=== PATIENT | male | born 1945 | race Caucasian/White ===

== ENCOUNTER 2016-11-27 04:17 | Inpatient (IN) | payer MEDICAID, MEDICARE ==
[~2016-11-27] VITALS: Ht 182.9 cm; Wt 65.6 kg
[2016-11-27] MEDS ORDERED: SODIUM CHLORIDE 0.9% 1,000 ML IV ONE (04:47)
[2016-11-27] MEDS ORDERED: SODIUM CHLORIDE 0.9% 1,000ML IVBOLUS ONE (05:00)
[2016-11-27] MEDS ORDERED: ONDANSETRON 2MG/ML, 2ML IVPush ONE (05:00)
[2016-11-27] MEDS ORDERED: MORPHINE SULFATE 4 MG/ML, 1ML ONE ×3 (05:04→11:47)
[2016-11-27] MEDS ORDERED: ONDANSETRON 2MG/ML, 2ML ONE (05:04)
[2016-11-27] MEDS: MORPHINE SULFATE 4 MG/ML, 1ML IVPush PRN ×2 (05:09→06:35)
[2016-11-27 05:31] LABS: HEMATOCRIT 40.2 % (39.2-51.8); HEMOGLOBIN 13.6 g/dL (13.7-18.0); WHITE BLOOD COUNT 9.1 x10^3/uL (3.4-10)
[2016-11-27 05:50] LABS: ASPARTATE AMINO TRANSFERASE 13 U/L (15-37); BLOOD UREA NITROGEN 31 mg/dL (7-18)
[2016-11-27] MEDS ORDERED: CEFTRIAXONE PMX 1GM/50ML 50 ML IV ONE (07:00)
[2016-11-27] MEDS ORDERED: CEFTRIAXONE PMX 1GM/50ML 50 ML ONE (09:15)
[2016-11-27] MEDS ORDERED: SENN1TAB9 PO (10:34)
[2016-11-27] MEDS: SODIUM CHLORIDE 0.9% 1,000 ML IV SCH ×2 (10:35→20:00)
[2016-11-27] MEDS ORDERED: OXYC5CAP2 PO (10:35)
[2016-11-27] MEDS ORDERED: CIPR250T2 PO (10:36)
[2016-11-27] MEDS ORDERED: TAMS-11 PO (10:36)
[2016-11-27] MEDS ORDERED: BISACODYL 10 MG SUPP PR PRN (11:00)
[2016-11-27] MEDS ORDERED: LABETALOL 5MG/ML, 20ML IVPush PRN (11:00)
[2016-11-27] MEDS ORDERED: DOCUSATE 100 MG CAPSULE PO PRN (11:00)
[2016-11-27] MEDS ORDERED: morphine SULFATE 10 MG/ML, 1ML IVPush PRN (11:00)
[2016-11-27] MEDS ORDERED: PROMETHAZINE 25 MG/ML, 1ML IM PRN (11:00)
[2016-11-27] MEDS ORDERED: POLYETHYLENE GLYCOL 17 GM PACKET PO PRN (11:00)
[2016-11-27] MEDS ORDERED: ENALAPRILAT 1.25 MG/ML, 2ML IVPush PRN (11:00)
[2016-11-27] MEDS ORDERED: ACETAMINOPHEN 325 MG TABLET PO PRN (11:00)
[2016-11-27] MEDS ORDERED: ONDANSETRON 2MG/ML, 2ML IVPush PRN (11:00)
[2016-11-27 11:42] VITALS: BP 164/89
[2016-11-27] MEDS: MEROPENEM 1 GM in SODIUM CHLORIDE 0.9% 100 ML IV SCH (16:34)
[2016-11-27] MEDS: ENOXAPARIN 40 MG/0.4 ML SQ SCH (18:13)
[2016-11-27 18:37] VITALS: BP 115/69
[2016-11-27] MEDS: OXYcodone IR 5MG TABLET PO PRN (22:01)
[2016-11-28] MEDS: MEROPENEM 1 GM in SODIUM CHLORIDE 0.9% 100 ML IV SCH ×3 (00:56→16:47)
[2016-11-28 04:30] VITALS: BP 124/73
[2016-11-28] MEDS ORDERED: VANCOMYCIN PER PHARMACY MC PRN (04:30)
[2016-11-28] MEDS ORDERED: PHARMACOKINETIC CONSULTATION MC ONE (04:30)
[2016-11-28] MEDS ORDERED: PHARMACOKINETIC MONITORING MC PRN (04:30)
[2016-11-28] MEDS: SODIUM CHLORIDE 0.9% 1,000 ML IV SCH ×3 (04:40→14:56)
[2016-11-28] MEDS: VANCOMYCIN 1,300 MG in SODIUM CHLORIDE 0.9% 250 ML IV SCH (04:45)
[2016-11-28] MEDS: OXYcodone IR 5MG TABLET PO PRN ×2 (05:41→11:23)
[2016-11-28 06:01] LABS: HEMATOCRIT 35.2 % (39.2-51.8); HEMOGLOBIN 11.8 g/dL (13.7-18.0); WHITE BLOOD COUNT 6.3 x10^3/uL (3.4-10)
[2016-11-28 06:29] LABS: ASPARTATE AMINO TRANSFERASE 10 U/L (15-37); BLOOD UREA NITROGEN 18 mg/dL (7-18)
[2016-11-28 06:45] VITALS: BP 113/72
[2016-11-28] MEDS: FINASTERIDE 5 MG TABLET PO SCH (08:55)
[2016-11-28] MEDS: SENNA/DOCUSATE TABLET PO SCH (08:55)
[2016-11-28 15:05] VITALS: BP 106/62
[2016-11-28] MEDS ORDERED: NS + 20MEQ KCL 1,000 ML IV SCH (18:00)
[2016-11-28 19:58] VITALS: BP 109/54
[2016-11-29] MEDS: OXYcodone IR 5MG TABLET PO PRN ×3 (00:19→21:23)
[2016-11-29] MEDS: MEROPENEM 1 GM in SODIUM CHLORIDE 0.9% 100 ML IV SCH ×3 (00:21→16:30)
[2016-11-29] MEDS: VANCOMYCIN 1,300 MG in SODIUM CHLORIDE 0.9% 250 ML IV SCH (04:39)
[2016-11-29 04:46] VITALS: BP 135/75
[2016-11-29 05:25] LABS: HEMATOCRIT 35.6 % (39.2-51.8); HEMOGLOBIN 11.9 g/dL (13.7-18.0); WHITE BLOOD COUNT 5.6 x10^3/uL (3.4-10)
[2016-11-29 05:36] LABS: BLOOD UREA NITROGEN 15 mg/dL (7-18)
[2016-11-29 08:50] VITALS: BP 137/83
[2016-11-29] MEDS: FINASTERIDE 5 MG TABLET PO SCH (09:00)
[2016-11-29] MEDS: SENNA/DOCUSATE TABLET PO SCH (09:00)
[2016-11-29 14:58] VITALS: BP 138/81
[2016-11-29] MEDS: ENOXAPARIN 40 MG/0.4 ML SQ SCH (18:00)
[2016-11-29 20:39] VITALS: BP 138/71
[2016-11-30] MEDS: MEROPENEM 1 GM in SODIUM CHLORIDE 0.9% 100 ML IV SCH ×2 (00:54→08:07)
[2016-11-30 03:30] VITALS: BP 129/75
[2016-11-30] MEDS: VANCOMYCIN 1,300 MG in SODIUM CHLORIDE 0.9% 250 ML IV SCH (05:22)
[2016-11-30 06:59] VITALS: BP 137/78
[2016-11-30] MEDS: OXYcodone IR 5MG TABLET PO PRN ×3 (08:27→22:14)
[2016-11-30] MEDS: SENNA/DOCUSATE TABLET PO SCH (09:24)
[2016-11-30] MEDS: FINASTERIDE 5 MG TABLET PO SCH (09:24)
[2016-11-30 13:44] VITALS: BP 130/68
[2016-11-30] MEDS: ENOXAPARIN 40 MG/0.4 ML SQ SCH (18:11)
[2016-11-30 19:09] VITALS: BP 120/74
[2016-11-30] MEDS: SULFAMETH./TRIMETHOPRIM DS 800MG/160MG TABLET PO SCH (20:15)
[2016-12-01 00:39] VITALS: BP 154/89
[2016-12-01 08:02] VITALS: BP 144/80
[2016-12-01] MEDS: FINASTERIDE 5 MG TABLET PO SCH (08:40)
[2016-12-01] MEDS: SULFAMETH./TRIMETHOPRIM DS 800MG/160MG TABLET PO SCH (08:40)
[2016-12-01] MEDS: SENNA/DOCUSATE TABLET PO SCH ×2 (08:40→08:45)
[2016-12-01] MEDS: OXYcodone IR 5MG TABLET PO PRN (08:58)
[2016-12-01 13:46] VITALS: BP 150/81
[2016-12-01] MEDS ORDERED: SULF-169 PO (14:45)
[2016-12-01] MEDS ORDERED: FINA5TAB4 PO (14:45)
== END 2016-12-01 16:54 | disposition home or self-care (01) | DRG 70 ==
LOC: ED 05:20 → EDIP 09:29 → 4NOR 11:18
PROVIDERS: ADMIT Internal Medicine; ATTEND Family Medicine
DX: G93.41 Metabolic encephalopathy (principal); E43 Unspecified severe protein-calorie malnutrition; N39.0 Urinary tract infection, site not specified; D53.9 Nutritional anemia, unspecified; B95.62 Methicillin resistant Staphylococcus aureus infection as the cause of diseases classified elsewhere; R78.81 Bacteremia; E86.0 Dehydration; R64 Cachexia; Z68.1 Body mass index [BMI] 19.9 or less, adult; B96.4 Proteus (mirabilis) (morganii) as the cause of diseases classified elsewhere; I10 Essential (primary) hypertension; R62.7 Adult failure to thrive; N40.0 Benign prostatic hyperplasia without lower urinary tract symptoms; Z51.5 Encounter for palliative care; Z66 Do not resuscitate; Z75.1 Person awaiting admission to adequate facility elsewhere
CPT/HCPCS: 36415; 70450; 71010; 74176; 80048; 80053; 81001; 82607; 82746; 83605; 83735; 84100; 84145; 84443; 85025; 87040; 87077; 87086; 87150; 87186; 87324; 93005; 96361; 96365; 96366; 96375; 96376; J0696; J1650; J2185; J2405; J3370; J3480; J2270; J7030; J7050; Q0177

== ENCOUNTER 2016-12-20 14:52 | Inpatient (IN) | payer MEDICARE, OTHER ==
[~2016-12-20] VITALS: Ht 188 cm; Wt 73.1 kg
[~2016-12-20 14:52] MED LIST: CIPR250T2 PO; FINA5TAB4 PO; OXYC5CAP2 PO; SENN1TAB9 PO; SULF-169 PO; TAMS-11 PO
[2016-12-20] MEDS ORDERED: SODIUM CHLORIDE FLUSH 10ML SYR IVF ONE (15:30)
[2016-12-20] MEDS ORDERED: SODIUM CHLORIDE 0.9% 1,000ML IVBOLUS ONE (15:30)
[2016-12-20 16:05] LABS: HEMATOCRIT 40.2 % (39.2-51.8); HEMOGLOBIN 13.5 g/dL (13.7-18.0); WHITE BLOOD COUNT 5.2 x10^3/uL (3.4-10)
[2016-12-20 16:13] LABS: BLOOD UREA NITROGEN 15 mg/dL (7-18)
[2016-12-20 16:17] LABS: ASPARTATE AMINO TRANSFERASE 13 U/L (15-37)
[2016-12-20] MEDS ORDERED: SULFAMETH./TRIMETHOPRIM DS 800MG/160MG TABLET PO ONE (19:00)
[2016-12-20] MEDS ORDERED: ONDANSETRON ODT 4 MG PO PRN (19:30)
[2016-12-20] MEDS ORDERED: ENALAPRILAT 1.25 MG/ML, 2ML IVPush PRN (19:30)
[2016-12-20] MEDS ORDERED: ACETAMINOPHEN 325 MG TABLET PO PRN (19:30)
[2016-12-20] MEDS ORDERED: POLYETHYLENE GLYCOL 17 GM PACKET PO PRN (19:30)
[2016-12-20 19:44] VITALS: BP 129/78
[2016-12-20] MEDS: TEMAZEPAM 15 MG CAPSULE PO PRN (23:40)
[2016-12-20] MEDS: ENOXAPARIN 40 MG/0.4 ML SQ SCH (23:40)
[2016-12-21] MEDS: SULFAMETH./TRIMETHOPRIM DS 800MG/160MG TABLET PO SCH ×3 (00:41→19:39)
[2016-12-21 01:20] VITALS: BP 122/78
[2016-12-21 03:59] VITALS: BP 122/78
[2016-12-21 07:07] VITALS: BP 134/85
[2016-12-21] MEDS: OXYcodone IR 5MG TABLET PO SCH (08:37)
[2016-12-21] MEDS: FINASTERIDE 5 MG TABLET PO SCH (08:37)
[2016-12-21] MEDS: TAMSULOSIN 0.4 MG CAP.ER.24H PO SCH (08:37)
[2016-12-21 13:30] VITALS: BP 119/74
[2016-12-21 19:24] VITALS: BP 126/76
[2016-12-21] MEDS: ENOXAPARIN 40 MG/0.4 ML SQ SCH (19:39)
[2016-12-21] MEDS: TEMAZEPAM 15 MG CAPSULE PO PRN (20:19)
[2016-12-22 02:04] VITALS: BP 135/83
[2016-12-22 05:45] LABS: HEMATOCRIT 38.2 % (39.2-51.8); HEMOGLOBIN 12.9 g/dL (13.7-18.0); WHITE BLOOD COUNT 4.9 x10^3/uL (3.4-10)
[2016-12-22 05:49] LABS: BLOOD UREA NITROGEN 15 mg/dL (7-18)
[2016-12-22 07:48] VITALS: BP 131/81
[2016-12-22] MEDS: FINASTERIDE 5 MG TABLET PO SCH (09:27)
[2016-12-22] MEDS: TAMSULOSIN 0.4 MG CAP.ER.24H PO SCH (09:27)
[2016-12-22] MEDS: OXYcodone IR 5MG TABLET PO SCH (09:27)
[2016-12-22] MEDS: SULFAMETH./TRIMETHOPRIM DS 800MG/160MG TABLET PO SCH ×2 (09:27→21:00)
[2016-12-22 13:03] VITALS: BP 117/73
[2016-12-22] MEDS: CYANOCOBALAMIN 1,000 MCG/ML, 1ML IM SCH (13:48)
[2016-12-22] MEDS: OXYcodone IR 5MG TABLET PO PRN ×2 (14:16→21:21)
[2016-12-22 19:34] VITALS: BP 147/82
[2016-12-22] MEDS: ENOXAPARIN 40 MG/0.4 ML SQ SCH (21:00)
[2016-12-22] MEDS: TEMAZEPAM 15 MG CAPSULE PO PRN (22:00)
[2016-12-23] MEDS: OXYcodone IR 5MG TABLET PO PRN ×5 (01:30→22:18)
[2016-12-23 02:30] VITALS: BP 133/77
[2016-12-23 06:53] VITALS: BP 119/72
[2016-12-23] MEDS: FINASTERIDE 5 MG TABLET PO SCH (09:10)
[2016-12-23] MEDS: TAMSULOSIN 0.4 MG CAP.ER.24H PO SCH (09:10)
[2016-12-23] MEDS: SULFAMETH./TRIMETHOPRIM DS 800MG/160MG TABLET PO SCH (09:10)
[2016-12-23] MEDS: CYANOCOBALAMIN 1,000 MCG/ML, 1ML IM SCH (09:10)
[2016-12-23 12:53] VITALS: BP 127/74
[2016-12-23] MEDS: AMPICILLIN 1 GM in SODIUM CHLORIDE 0.9% 50 ML IV SCH ×2 (16:23→22:04)
[2016-12-23 18:42] VITALS: BP 126/78
[2016-12-23] MEDS: ENOXAPARIN 40 MG/0.4 ML SQ SCH (21:36)
[2016-12-24 01:22] VITALS: BP 163/81
[2016-12-24] MEDS: AMPICILLIN 1 GM in SODIUM CHLORIDE 0.9% 50 ML IV SCH ×4 (04:27→22:41)
[2016-12-24 05:12] LABS: HEMATOCRIT 38.7 % (39.2-51.8); HEMOGLOBIN 13.2 g/dL (13.7-18.0); WHITE BLOOD COUNT 5.4 x10^3/uL (3.4-10)
[2016-12-24 05:28] LABS: BLOOD UREA NITROGEN 20 mg/dL (7-18)
[2016-12-24 08:13] VITALS: BP 123/80
[2016-12-24] MEDS: TAMSULOSIN 0.4 MG CAP.ER.24H PO SCH (09:23)
[2016-12-24] MEDS: FINASTERIDE 5 MG TABLET PO SCH (09:23)
[2016-12-24] MEDS: CYANOCOBALAMIN 1,000 MCG/ML, 1ML IM SCH (09:23)
[2016-12-24] MEDS: OXYcodone IR 5MG TABLET PO PRN ×2 (09:28→20:10)
[2016-12-24 12:55] VITALS: BP 125/72
[2016-12-24 19:02] VITALS: BP 118/71
[2016-12-24 19:09] VITALS: BP 173/89
[2016-12-24] MEDS: ENOXAPARIN 40 MG/0.4 ML SQ SCH (20:10)
[2016-12-24] MEDS: TEMAZEPAM 15 MG CAPSULE PO PRN (20:10)
[2016-12-25] MEDS ORDERED: ACETAMINOPHEN 325 MG TABLET PO PRN (00:30)
[2016-12-25] MEDS ORDERED: POLYETHYLENE GLYCOL 17 GM PACKET PO PRN (00:30)
[2016-12-25] MEDS ORDERED: ONDANSETRON ODT 4 MG PO PRN (00:30)
[2016-12-25] MEDS ORDERED: ENALAPRILAT 1.25 MG/ML, 2ML IVPush PRN (00:30)
[2016-12-25 01:32] VITALS: BP 128/77
[2016-12-25] MEDS: AMPICILLIN 1 GM in SODIUM CHLORIDE 0.9% 50 ML IV SCH ×4 (03:50→23:10)
[2016-12-25 07:40] VITALS: BP 120/73
[2016-12-25] MEDS: FINASTERIDE 5 MG TABLET PO SCH (08:39)
[2016-12-25] MEDS: CYANOCOBALAMIN 1,000 MCG/ML, 1ML IM SCH (08:39)
[2016-12-25] MEDS: TAMSULOSIN 0.4 MG CAP.ER.24H PO SCH (08:39)
[2016-12-25] MEDS: OXYcodone IR 5MG TABLET PO PRN ×2 (08:47→21:09)
[2016-12-25 14:53] VITALS: BP 148/72
[2016-12-25 19:11] VITALS: BP 128/76
[2016-12-25] MEDS: TEMAZEPAM 15 MG CAPSULE PO PRN (21:09)
[2016-12-25] MEDS: ENOXAPARIN 40 MG/0.4 ML SQ SCH (21:10)
[2016-12-26 02:47] VITALS: BP 126/68
[2016-12-26] MEDS: AMPICILLIN 1 GM in SODIUM CHLORIDE 0.9% 50 ML IV SCH ×4 (05:09→23:24)
[2016-12-26 06:50] VITALS: BP 124/77
[2016-12-26] MEDS: OXYcodone IR 5MG TABLET PO PRN ×2 (10:07→20:21)
[2016-12-26] MEDS: TAMSULOSIN 0.4 MG CAP.ER.24H PO SCH (10:07)
[2016-12-26] MEDS: CYANOCOBALAMIN 1,000 MCG/ML, 1ML IM SCH (10:07)
[2016-12-26] MEDS: FINASTERIDE 5 MG TABLET PO SCH (10:07)
[2016-12-26 14:16] VITALS: BP 119/75
[2016-12-26] MEDS: ENOXAPARIN 40 MG/0.4 ML SQ SCH (19:59)
[2016-12-26 20:23] VITALS: BP 163/83
[2016-12-27 02:00] VITALS: BP 158/87
[2016-12-27] MEDS: AMPICILLIN 1 GM in SODIUM CHLORIDE 0.9% 50 ML IV SCH ×4 (05:09→22:34)
[2016-12-27 07:04] VITALS: BP 148/85
[2016-12-27] MEDS: FINASTERIDE 5 MG TABLET PO SCH (08:55)
[2016-12-27] MEDS: CYANOCOBALAMIN 1,000 MCG/ML, 1ML IM SCH (08:55)
[2016-12-27] MEDS: TAMSULOSIN 0.4 MG CAP.ER.24H PO SCH (08:55)
[2016-12-27] MEDS: OXYcodone IR 5MG TABLET PO PRN ×2 (11:18→22:33)
[2016-12-27 16:21] VITALS: BP 134/78
[2016-12-27 20:58] VITALS: BP 135/76
[2016-12-27] MEDS: ENOXAPARIN 40 MG/0.4 ML SQ SCH (22:34)
[2016-12-28 00:42] VITALS: BP 155/81
[2016-12-28] MEDS: AMPICILLIN 1 GM in SODIUM CHLORIDE 0.9% 50 ML IV SCH ×2 (05:23→11:00)
[2016-12-28] MEDS: TAMSULOSIN 0.4 MG CAP.ER.24H PO SCH (08:48)
[2016-12-28] MEDS: FINASTERIDE 5 MG TABLET PO SCH (08:48)
[2016-12-28] MEDS: CYANOCOBALAMIN 1,000 MCG/ML, 1ML IM SCH (08:49)
[2016-12-28 08:55] VITALS: BP 129/74
[2016-12-28] MEDS: OXYcodone IR 5MG TABLET PO PRN ×3 (09:01→23:14)
[2016-12-28] MEDS: AMPICILLIN/SULBACTAM 3 GM in SODIUM CHLORIDE 0.9% 100 ML IV SCH ×2 (12:36→19:17)
[2016-12-28 12:47] VITALS: BP 115/70
[2016-12-28 19:28] VITALS: BP 131/74
[2016-12-28] MEDS: TEMAZEPAM 15 MG CAPSULE PO PRN (20:21)
[2016-12-28] MEDS: ENOXAPARIN 40 MG/0.4 ML SQ SCH (20:21)
[2016-12-29 03:35] VITALS: BP 125/74
[2016-12-29] MEDS: AMPICILLIN/SULBACTAM 3 GM in SODIUM CHLORIDE 0.9% 100 ML IV SCH ×4 (03:36→23:15)
[2016-12-29 06:45] VITALS: BP 143/78
[2016-12-29] MEDS: OXYcodone IR 5MG TABLET PO PRN ×2 (09:23→23:16)
[2016-12-29] MEDS: TAMSULOSIN 0.4 MG CAP.ER.24H PO SCH (09:24)
[2016-12-29] MEDS: FINASTERIDE 5 MG TABLET PO SCH (09:24)
[2016-12-29 13:20] VITALS: BP 125/71
[2016-12-29 20:00] VITALS: BP 120/74
[2016-12-29] MEDS: ENOXAPARIN 40 MG/0.4 ML SQ SCH (23:15)
[2016-12-30 01:50] VITALS: BP 112/66
[2016-12-30] MEDS: AMPICILLIN/SULBACTAM 3 GM in SODIUM CHLORIDE 0.9% 100 ML IV SCH ×3 (04:44→20:40)
[2016-12-30 06:43] VITALS: BP 123/82
[2016-12-30] MEDS: FINASTERIDE 5 MG TABLET PO SCH (09:42)
[2016-12-30] MEDS: TAMSULOSIN 0.4 MG CAP.ER.24H PO SCH (09:42)
[2016-12-30 14:40] VITALS: BP 123/75
[2016-12-30 19:14] VITALS: BP 127/69
[2016-12-30] MEDS: OXYcodone IR 5MG TABLET PO PRN (20:28)
[2016-12-30] MEDS: ENOXAPARIN 40 MG/0.4 ML SQ SCH (20:28)
[2016-12-30] MEDS: TEMAZEPAM 15 MG CAPSULE PO PRN (20:28)
[2016-12-31] MEDS: TEMAZEPAM 15 MG CAPSULE PO PRN (01:22)
[2016-12-31 03:39] VITALS: BP 168/93
[2016-12-31] MEDS: AMPICILLIN/SULBACTAM 3 GM in SODIUM CHLORIDE 0.9% 100 ML IV SCH ×3 (05:37→21:36)
[2016-12-31 06:39] VITALS: BP 156/89
[2016-12-31] MEDS: OXYcodone IR 5MG TABLET PO PRN ×2 (09:40→17:44)
[2016-12-31] MEDS: FINASTERIDE 5 MG TABLET PO SCH (09:40)
[2016-12-31] MEDS: TAMSULOSIN 0.4 MG CAP.ER.24H PO SCH (09:40)
[2016-12-31 12:42] VITALS: BP 124/74
[2016-12-31 13:01] VITALS: BP 124/74
[2016-12-31] MEDS ORDERED: POLYETHYLENE GLYCOL 17 GM PACKET PO PRN (19:30)
[2016-12-31] MEDS ORDERED: ONDANSETRON ODT 4 MG PO PRN (19:30)
[2016-12-31] MEDS ORDERED: ENALAPRILAT 1.25 MG/ML, 2ML IVPush PRN (19:30)
[2016-12-31 20:00] VITALS: BP 152/85
[2016-12-31] MEDS: ENOXAPARIN 40 MG/0.4 ML SQ SCH (21:36)
[2016-12-31] MEDS ORDERED: AMPICILLIN/SULBACTAM 3 GM IM SCH (22:30)
[2017-01-01] MEDS: OXYcodone IR 5MG TABLET PO PRN ×3 (01:01→18:20)
[2017-01-01 02:00] VITALS: BP 123/65
[2017-01-01] MEDS ORDERED: AMPICILLIN/SULBACTAM 3 GM IM SCH (05:30)
[2017-01-01 06:43] VITALS: BP 142/81
[2017-01-01] MEDS: AMPICILLIN/SULBACTAM 3 GM in SODIUM CHLORIDE 0.9% 100 ML IV SCH ×2 (09:00→17:26)
[2017-01-01] MEDS: FINASTERIDE 5 MG TABLET PO SCH (09:19)
[2017-01-01] MEDS: TAMSULOSIN 0.4 MG CAP.ER.24H PO SCH (09:19)
[2017-01-01 12:16] VITALS: BP 125/74
[2017-01-01 19:31] VITALS: BP 124/69
[2017-01-01] MEDS: ENOXAPARIN 40 MG/0.4 ML SQ SCH (21:02)
[2017-01-01] MEDS: TEMAZEPAM 15 MG CAPSULE PO PRN (21:06)
[2017-01-02] MEDS: AMPICILLIN/SULBACTAM 3 GM in SODIUM CHLORIDE 0.9% 100 ML IV SCH ×3 (01:09→17:31)
[2017-01-02 02:46] VITALS: BP 136/76
[2017-01-02] MEDS: OXYcodone IR 5MG TABLET PO PRN ×4 (04:20→21:55)
[2017-01-02 08:19] VITALS: BP 129/77
[2017-01-02] MEDS: FINASTERIDE 5 MG TABLET PO SCH (08:26)
[2017-01-02] MEDS: TAMSULOSIN 0.4 MG CAP.ER.24H PO SCH (08:26)
[2017-01-02 13:37] VITALS: BP 126/74
[2017-01-02 20:00] VITALS: BP 121/69
[2017-01-02] MEDS: ENOXAPARIN 40 MG/0.4 ML SQ SCH (21:41)
[2017-01-03] MEDS: TEMAZEPAM 15 MG CAPSULE PO PRN ×2 (01:07→20:59)
[2017-01-03] MEDS: AMPICILLIN/SULBACTAM 3 GM in SODIUM CHLORIDE 0.9% 100 ML IV SCH ×3 (01:07→17:43)
[2017-01-03 02:00] VITALS: BP 144/79
[2017-01-03 06:07] LABS: HEMATOCRIT 35.2 % (39.2-51.8); HEMOGLOBIN 11.9 g/dL (13.7-18.0); WHITE BLOOD COUNT 4.5 x10^3/uL (3.4-10)
[2017-01-03 06:26] LABS: ASPARTATE AMINO TRANSFERASE 9 U/L (15-37); BLOOD UREA NITROGEN 19 mg/dL (7-18)
[2017-01-03 08:41] VITALS: BP 156/83
[2017-01-03] MEDS: TAMSULOSIN 0.4 MG CAP.ER.24H PO SCH (08:58)
[2017-01-03] MEDS: FINASTERIDE 5 MG TABLET PO SCH (08:59)
[2017-01-03] MEDS: OXYcodone IR 5MG TABLET PO PRN ×3 (09:37→20:59)
[2017-01-03 14:54] VITALS: BP 123/76
[2017-01-03 20:00] VITALS: BP 144/82
[2017-01-03] MEDS: ENOXAPARIN 40 MG/0.4 ML SQ SCH (20:58)
[2017-01-04 02:00] VITALS: BP 136/78
[2017-01-04] MEDS: AMPICILLIN/SULBACTAM 3 GM in SODIUM CHLORIDE 0.9% 100 ML IV SCH ×2 (02:35→09:40)
[2017-01-04 09:00] VITALS: BP 130/78
[2017-01-04] MEDS: TAMSULOSIN 0.4 MG CAP.ER.24H PO SCH (09:40)
[2017-01-04] MEDS: OXYcodone IR 5MG TABLET PO PRN ×3 (09:40→21:29)
[2017-01-04] MEDS: FINASTERIDE 5 MG TABLET PO SCH (09:40)
[2017-01-04 13:27] VITALS: BP 138/78
[2017-01-04 18:44] VITALS: BP 134/74
[2017-01-04] MEDS: TEMAZEPAM 15 MG CAPSULE PO PRN ×2 (21:09→21:25)
[2017-01-04] MEDS: ENOXAPARIN 40 MG/0.4 ML SQ SCH (21:25)
[2017-01-05] MEDS: OXYcodone IR 5MG TABLET PO PRN ×3 (02:02→23:49)
[2017-01-05 02:19] VITALS: BP 134/85
[2017-01-05 07:03] VITALS: BP 135/74
[2017-01-05] MEDS: FINASTERIDE 5 MG TABLET PO SCH (07:50)
[2017-01-05] MEDS: TAMSULOSIN 0.4 MG CAP.ER.24H PO SCH (07:50)
[2017-01-05 12:35] VITALS: BP 147/80
[2017-01-05 19:57] VITALS: BP 136/75
[2017-01-05] MEDS: ENOXAPARIN 40 MG/0.4 ML SQ SCH (23:44)
[2017-01-06] MEDS: OXYcodone IR 5MG TABLET PO PRN ×2 (01:01→21:27)
[2017-01-06 01:43] VITALS: BP 136/75
[2017-01-06 07:23] VITALS: BP 130/76
[2017-01-06] MEDS: TAMSULOSIN 0.4 MG CAP.ER.24H PO SCH (09:10)
[2017-01-06] MEDS: FINASTERIDE 5 MG TABLET PO SCH (09:10)
[2017-01-06 12:56] VITALS: BP 135/81
[2017-01-06 20:00] VITALS: BP 143/74
[2017-01-06 20:39] VITALS: BP 137/78
[2017-01-06] MEDS: ENOXAPARIN 40 MG/0.4 ML SQ SCH (21:24)
[2017-01-07 02:00] VITALS: BP 124/74
[2017-01-07 05:28] LABS: HEMATOCRIT 37.3 % (39.2-51.8); HEMOGLOBIN 12.6 g/dL (13.7-18.0); WHITE BLOOD COUNT 4.7 x10^3/uL (3.4-10)
[2017-01-07 05:50] LABS: ASPARTATE AMINO TRANSFERASE 12 U/L (15-37); BLOOD UREA NITROGEN 20 mg/dL (7-18)
[2017-01-07 08:40] VITALS: BP 116/72
[2017-01-07] MEDS: FINASTERIDE 5 MG TABLET PO SCH (08:55)
[2017-01-07] MEDS: TAMSULOSIN 0.4 MG CAP.ER.24H PO SCH (08:55)
[2017-01-07] MEDS: OXYcodone IR 5MG TABLET PO PRN ×2 (08:56→21:21)
[2017-01-07 14:42] VITALS: BP 134/82
[2017-01-07] MEDS ORDERED: ACETAMINOPHEN 325 MG TABLET PO PRN (16:30)
[2017-01-07] MEDS ORDERED: ONDANSETRON ODT 4 MG PO PRN (16:30)
[2017-01-07] MEDS ORDERED: ENALAPRILAT 1.25 MG/ML, 2ML IVPush PRN (16:30)
[2017-01-07] MEDS ORDERED: POLYETHYLENE GLYCOL 17 GM PACKET PO PRN (16:30)
[2017-01-07 19:16] VITALS: BP 132/72
[2017-01-07] MEDS: ENOXAPARIN 40 MG/0.4 ML SQ SCH (21:21)
[2017-01-07 22:19] LABS: PATH.CAST-FLAG NOT PRESENT; SPERM-FLAG NOT PRESENT; SRC-FLAG NOT PRESENT; XTAL-FLAG NOT PRESENT; YLC-FLAG NOT PRESENT
[2017-01-07] MEDS: TEMAZEPAM 15 MG CAPSULE PO PRN (23:50)
[2017-01-08 02:09] VITALS: BP 121/68
[2017-01-08 08:40] VITALS: BP 156/90
[2017-01-08 08:54] VITALS: BP 137/80
[2017-01-08] MEDS: TAMSULOSIN 0.4 MG CAP.ER.24H PO SCH (08:57)
[2017-01-08] MEDS: FINASTERIDE 5 MG TABLET PO SCH (08:57)
[2017-01-08 12:08] VITALS: BP 117/68
[2017-01-08 20:00] VITALS: BP 113/69
[2017-01-08] MEDS: OXYcodone IR 5MG TABLET PO PRN (20:37)
[2017-01-08] MEDS: ENOXAPARIN 40 MG/0.4 ML SQ SCH (20:37)
[2017-01-09 01:15] VITALS: BP 110/70
[2017-01-09] MEDS: OXYcodone IR 5MG TABLET PO PRN ×2 (03:17→19:32)
[2017-01-09 06:20] VITALS: BP 135/79
[2017-01-09] MEDS: TAMSULOSIN 0.4 MG CAP.ER.24H PO SCH (08:42)
[2017-01-09] MEDS: FINASTERIDE 5 MG TABLET PO SCH (08:42)
[2017-01-09 14:00] VITALS: BP 125/79
[2017-01-09] MEDS: ENOXAPARIN 40 MG/0.4 ML SQ SCH (19:32)
[2017-01-09] MEDS: TEMAZEPAM 15 MG CAPSULE PO PRN (19:32)
[2017-01-09 19:33] VITALS: BP 103/68
[2017-01-10] MEDS: OXYcodone IR 5MG TABLET PO PRN ×2 (00:20→20:44)
[2017-01-10 02:16] VITALS: BP 116/66
[2017-01-10 08:16] VITALS: BP 125/81
[2017-01-10] MEDS: FINASTERIDE 5 MG TABLET PO SCH (09:48)
[2017-01-10] MEDS: TAMSULOSIN 0.4 MG CAP.ER.24H PO SCH (09:48)
[2017-01-10 17:36] VITALS: BP 118/75
[2017-01-10 20:39] VITALS: BP_SYST 122; BP_SYST 131; BP_DIAS 75; BP_DIAS 80
[2017-01-10] MEDS: ENOXAPARIN 40 MG/0.4 ML SQ SCH (20:44)
[2017-01-11 01:10] VITALS: BP 134/75
[2017-01-11] MEDS: OXYcodone IR 5MG TABLET PO PRN ×2 (01:12→19:55)
[2017-01-11 06:53] VITALS: BP 134/75
[2017-01-11] MEDS: TAMSULOSIN 0.4 MG CAP.ER.24H PO SCH (08:40)
[2017-01-11] MEDS: FINASTERIDE 5 MG TABLET PO SCH (08:40)
[2017-01-11 13:18] VITALS: BP 122/79
[2017-01-11] MEDS: ENOXAPARIN 40 MG/0.4 ML SQ SCH (19:55)
[2017-01-11] MEDS: TEMAZEPAM 15 MG CAPSULE PO PRN (19:55)
[2017-01-11 20:00] VITALS: BP 144/80
[2017-01-12 02:00] VITALS: BP 113/73
[2017-01-12] MEDS: OXYcodone IR 5MG TABLET PO PRN ×3 (04:24→19:33)
[2017-01-12 08:44] VITALS: BP 127/83
[2017-01-12] MEDS: FINASTERIDE 5 MG TABLET PO SCH (08:46)
[2017-01-12] MEDS: TAMSULOSIN 0.4 MG CAP.ER.24H PO SCH (08:46)
[2017-01-12 15:08] VITALS: BP 126/76
[2017-01-12 17:25] VITALS: BP 126/76
[2017-01-12 18:43] VITALS: BP 131/80
[2017-01-12] MEDS: ENOXAPARIN 40 MG/0.4 ML SQ SCH (19:33)
[2017-01-12] MEDS: TEMAZEPAM 15 MG CAPSULE PO PRN (19:33)
[2017-01-13] MEDS: OXYcodone IR 5MG TABLET PO PRN ×2 (02:26→19:51)
[2017-01-13 02:33] VITALS: BP 138/77
[2017-01-13 06:36] VITALS: BP 122/76
[2017-01-13] MEDS: FINASTERIDE 5 MG TABLET PO SCH (09:10)
[2017-01-13] MEDS: TAMSULOSIN 0.4 MG CAP.ER.24H PO SCH (09:10)
[2017-01-13 13:11] VITALS: BP 128/81
[2017-01-13 19:43] VITALS: BP 127/78
[2017-01-13] MEDS: ENOXAPARIN 40 MG/0.4 ML SQ SCH (19:51)
[2017-01-14 00:48] VITALS: BP 157/84
[2017-01-14] MEDS: OXYcodone IR 5MG TABLET PO PRN ×3 (00:48→21:29)
[2017-01-14 06:35] VITALS: BP 141/88
[2017-01-14] MEDS: FINASTERIDE 5 MG TABLET PO SCH (08:59)
[2017-01-14] MEDS: TAMSULOSIN 0.4 MG CAP.ER.24H PO SCH (08:59)
[2017-01-14 12:51] VITALS: BP 119/80
[2017-01-14 21:27] VITALS: BP 121/69
[2017-01-14] MEDS: ENOXAPARIN 40 MG/0.4 ML SQ SCH (21:29)
[2017-01-14] MEDS: TEMAZEPAM 15 MG CAPSULE PO PRN (23:21)
[2017-01-15 01:23] VITALS: BP 127/79
[2017-01-15] MEDS: OXYcodone IR 5MG TABLET PO PRN ×3 (03:23→19:14)
[2017-01-15] MEDS: TAMSULOSIN 0.4 MG CAP.ER.24H PO SCH (09:32)
[2017-01-15] MEDS: FINASTERIDE 5 MG TABLET PO SCH (09:32)
[2017-01-15 09:40] VITALS: BP 122/76
[2017-01-15 13:02] VITALS: BP 138/84
[2017-01-15 17:59] VITALS: BP 132/84
[2017-01-15 19:01] VITALS: BP 119/75
[2017-01-15] MEDS: ENOXAPARIN 40 MG/0.4 ML SQ SCH (19:14)
[2017-01-15] MEDS ORDERED: ENALAPRILAT 1.25 MG/ML, 2ML IVPush PRN (21:00)
[2017-01-15] MEDS ORDERED: POLYETHYLENE GLYCOL 17 GM PACKET PO PRN (21:00)
[2017-01-15] MEDS ORDERED: ONDANSETRON ODT 4 MG PO PRN (21:00)
[2017-01-16] MEDS: OXYcodone IR 5MG TABLET PO PRN ×4 (00:56→22:12)
[2017-01-16 04:57] VITALS: BP 119/76
[2017-01-16 05:00] VITALS: BP 107/70
[2017-01-16 06:42] VITALS: BP 117/71
[2017-01-16] MEDS: FINASTERIDE 5 MG TABLET PO SCH (10:01)
[2017-01-16] MEDS: TAMSULOSIN 0.4 MG CAP.ER.24H PO SCH (10:01)
[2017-01-16 13:04] VITALS: BP 149/82
[2017-01-16] MEDS: ENOXAPARIN 40 MG/0.4 ML SQ SCH (21:18)
[2017-01-16 22:01] VITALS: BP 144/76
[2017-01-17 04:02] VITALS: BP 140/80
[2017-01-17 08:50] VITALS: BP 132/72
[2017-01-17] MEDS: TAMSULOSIN 0.4 MG CAP.ER.24H PO SCH (10:34)
[2017-01-17] MEDS: FINASTERIDE 5 MG TABLET PO SCH (10:34)
[2017-01-17 14:06] VITALS: BP 128/69
[2017-01-17] MEDS: OXYcodone IR 5MG TABLET PO PRN (18:41)
[2017-01-17] MEDS: ENOXAPARIN 40 MG/0.4 ML SQ SCH (21:32)
[2017-01-17 21:33] VITALS: BP 113/72
[2017-01-18] MEDS: TEMAZEPAM 15 MG CAPSULE PO PRN (02:34)
[2017-01-18] MEDS: OXYcodone IR 5MG TABLET PO PRN ×2 (02:34→19:22)
[2017-01-18 03:04] VITALS: BP 117/72
[2017-01-18 07:00] VITALS: BP 110/71
[2017-01-18] MEDS: FINASTERIDE 5 MG TABLET PO SCH (08:29)
[2017-01-18] MEDS: TAMSULOSIN 0.4 MG CAP.ER.24H PO SCH (08:29)
[2017-01-18 15:04] VITALS: BP 107/69
[2017-01-18 18:31] VITALS: BP 113/69
[2017-01-18] MEDS ORDERED: ENOXAPARIN 30 MG/0.3 ML SQ SCH (20:00)
[2017-01-19] MEDS: OXYcodone IR 5MG TABLET PO PRN ×4 (01:14→22:00)
[2017-01-19 02:35] VITALS: BP 123/78
[2017-01-19 07:40] VITALS: BP 116/67
[2017-01-19] MEDS: FINASTERIDE 5 MG TABLET PO SCH (08:32)
[2017-01-19] MEDS: TAMSULOSIN 0.4 MG CAP.ER.24H PO SCH (08:32)
[2017-01-19 13:28] VITALS: BP 133/78
[2017-01-19 18:35] VITALS: BP 112/72
[2017-01-19] MEDS: ENOXAPARIN 40 MG/0.4 ML SQ SCH (22:01)
[2017-01-20 02:42] VITALS: BP 129/75
[2017-01-20] MEDS: OXYcodone IR 5MG TABLET PO PRN ×2 (03:22→20:25)
[2017-01-20 06:34] VITALS: BP 135/78
[2017-01-20] MEDS: FINASTERIDE 5 MG TABLET PO SCH (09:35)
[2017-01-20] MEDS: TAMSULOSIN 0.4 MG CAP.ER.24H PO SCH (09:35)
[2017-01-20 12:49] VITALS: BP 121/76
[2017-01-20 18:28] VITALS: BP 128/84
[2017-01-20] MEDS: ENOXAPARIN 40 MG/0.4 ML SQ SCH (20:25)
[2017-01-20] MEDS: TEMAZEPAM 15 MG CAPSULE PO PRN (20:25)
[2017-01-21 01:00] VITALS: BP 125/68
[2017-01-21] MEDS: OXYcodone IR 5MG TABLET PO PRN ×4 (04:28→23:37)
[2017-01-21 06:32] VITALS: BP 142/79
[2017-01-21] MEDS: FINASTERIDE 5 MG TABLET PO SCH (08:37)
[2017-01-21] MEDS: TAMSULOSIN 0.4 MG CAP.ER.24H PO SCH (08:37)
[2017-01-21 13:36] VITALS: BP 120/75
[2017-01-21 18:56] VITALS: BP 108/66
[2017-01-21] MEDS: ENOXAPARIN 40 MG/0.4 ML SQ SCH (20:24)
[2017-01-21] MEDS ORDERED: ONDANSETRON ODT 4 MG PO PRN (21:30)
[2017-01-21] MEDS ORDERED: TEMAZEPAM 15 MG CAPSULE PO PRN (21:30)
[2017-01-21] MEDS ORDERED: ACETAMINOPHEN 325 MG TABLET PO PRN (21:30)
[2017-01-21] MEDS ORDERED: POLYETHYLENE GLYCOL 17 GM PACKET PO PRN (21:30)
[2017-01-21] MEDS ORDERED: ENALAPRILAT 1.25 MG/ML, 2ML IVPush PRN (21:30)
[2017-01-22 00:33] VITALS: BP 119/81
[2017-01-22 06:52] VITALS: BP 133/74
[2017-01-22] MEDS: FINASTERIDE 5 MG TABLET PO SCH (08:10)
[2017-01-22] MEDS: TAMSULOSIN 0.4 MG CAP.ER.24H PO SCH (08:10)
[2017-01-22 13:56] VITALS: BP 119/76
[2017-01-22] MEDS: OXYcodone IR 5MG TABLET PO PRN (20:04)
[2017-01-22] MEDS: ENOXAPARIN 40 MG/0.4 ML SQ SCH (20:04)
[2017-01-22 20:27] VITALS: BP 119/79
[2017-01-23] MEDS: OXYcodone IR 5MG TABLET PO PRN ×2 (02:05→23:07)
[2017-01-23 02:09] VITALS: BP 134/78
[2017-01-23 07:59] VITALS: BP 136/82
[2017-01-23] MEDS: FINASTERIDE 5 MG TABLET PO SCH (08:26)
[2017-01-23] MEDS: TAMSULOSIN 0.4 MG CAP.ER.24H PO SCH (08:26)
[2017-01-23] MEDS ORDERED: DIPHENHYDRAMINE 25 MG CAPSULE PO ONE (11:30)
[2017-01-23 14:24] VITALS: BP 119/77
[2017-01-23] MEDS: ENOXAPARIN 40 MG/0.4 ML SQ SCH (20:19)
[2017-01-23 20:30] VITALS: BP 134/76
[2017-01-24 02:26] VITALS: BP 118/80
[2017-01-24 08:11] VITALS: BP 117/83
[2017-01-24] MEDS: TAMSULOSIN 0.4 MG CAP.ER.24H PO SCH (08:35)
[2017-01-24] MEDS: FINASTERIDE 5 MG TABLET PO SCH (08:35)
[2017-01-24] MEDS ORDERED: DIPHENHYDRAMINE 25 MG CAPSULE ONE (10:17)
[2017-01-24] MEDS: OXYcodone IR 5MG TABLET PO PRN ×2 (10:26→23:50)
[2017-01-24] MEDS ORDERED: DIPHENHYDRAMINE 25 MG CAPSULE PO ONE ×2 (10:30)
[2017-01-24] MEDS: CYANOCOBALAMIN 1,000 MCG TABLET PO SCH (11:58)
[2017-01-24 13:03] VITALS: BP 113/64
[2017-01-24] MEDS: ENOXAPARIN 40 MG/0.4 ML SQ SCH (21:42)
[2017-01-24 22:11] VITALS: BP 137/79
[2017-01-25] MEDS ORDERED: DIPHENHYDRAMINE 25 MG CAPSULE PO ONE (01:00)
[2017-01-25 01:40] VITALS: BP 126/71
[2017-01-25] MEDS: OXYcodone IR 5MG TABLET PO PRN ×3 (06:29→22:02)
[2017-01-25] MEDS: CYANOCOBALAMIN 1,000 MCG TABLET PO SCH (08:24)
[2017-01-25] MEDS: FINASTERIDE 5 MG TABLET PO SCH (08:24)
[2017-01-25] MEDS: TAMSULOSIN 0.4 MG CAP.ER.24H PO SCH (08:24)
[2017-01-25 08:54] VITALS: BP 128/74
[2017-01-25 14:04] VITALS: BP 136/83
[2017-01-25 18:58] VITALS: BP 136/69
[2017-01-25] MEDS: ENOXAPARIN 40 MG/0.4 ML SQ SCH (22:02)
[2017-01-26 02:43] VITALS: BP 126/76
[2017-01-26 06:35] VITALS: BP 136/76
[2017-01-26] MEDS: FINASTERIDE 5 MG TABLET PO SCH (08:11)
[2017-01-26] MEDS: TAMSULOSIN 0.4 MG CAP.ER.24H PO SCH (08:11)
[2017-01-26] MEDS: CYANOCOBALAMIN 1,000 MCG TABLET PO SCH (08:11)
[2017-01-26] MEDS: OXYcodone IR 5MG TABLET PO PRN ×2 (08:55→17:01)
[2017-01-26 12:22] VITALS: BP 129/79
[2017-01-26] MEDS ORDERED: ONDA4TAB13 PO (12:50)
[2017-01-26] MEDS ORDERED: CYAN10005 PO (12:50)
[2017-01-26] MEDS ORDERED: TEMA15CA6 PO (12:50)
[2017-01-26] MEDS ORDERED: POLY17PO5 PO (12:50)
[2017-01-26] MEDS ORDERED: OXYC5TAB3 PO (14:49)
== END 2017-01-26 18:25 | disposition home health service (06) | DRG 698 ==
LOC: ED 17:05 → EDIP 17:27 → 3NE 20:41 → 4EST 12-27 00:29 → 4NOR 01-15 17:57 → 3NE 01-18 17:42
PROVIDERS: ADMIT Internal Medicine; ATTEND Internal Medicine
PROC: 0T9B70Z Drainage of Bladder with Drainage Device, Via Natural or Artificial Opening (ICD-10-PCS; principal; 2016-12-20)
DX: T83.518A Infection and inflammatory reaction due to other urinary catheter, initial encounter (principal); E43 Unspecified severe protein-calorie malnutrition; L89.159 Pressure ulcer of sacral region, unspecified stage; R78.81 Bacteremia; N39.0 Urinary tract infection, site not specified; D53.9 Nutritional anemia, unspecified; B95.61 Methicillin susceptible Staphylococcus aureus infection as the cause of diseases classified elsewhere; N30.90 Cystitis, unspecified without hematuria; Z51.5 Encounter for palliative care; E53.8 Deficiency of other specified B group vitamins; R33.8 Other retention of urine; N40.1 Benign prostatic hyperplasia with lower urinary tract symptoms; B95.2 Enterococcus as the cause of diseases classified elsewhere; I10 Essential (primary) hypertension; Z16.21 Resistance to vancomycin; R62.7 Adult failure to thrive; Z86.14 Personal history of Methicillin resistant Staphylococcus aureus infection; Z86.19 Personal history of other infectious and parasitic diseases; Z90.49 Acquired absence of other specified parts of digestive tract; Z68.20 Body mass index [BMI] 20.0-20.9, adult; Z66 Do not resuscitate
CPT/HCPCS: 36415; 51702; 71010; 80048; 80053; 81001; 82565; 82607; 82746; 83605; 83735; 84100; 84443; 85025; 85610; 87040; 87077; 87086; 87186; 93005; J0290; J0295; J1650; J3420; J7030; Q0163

== ENCOUNTER 2017-02-02 13:40 | Inpatient (IN) | payer MEDICARE, OTHER ==
[~2017-02-02] VITALS: Ht 188 cm; Wt 62.1 kg
[~2017-02-02 13:40] MED LIST changes: +CYAN10005 PO; +ONDA4TAB13 PO; +OXYC5TAB3 PO; +POLY17PO5 PO; +TEMA15CA6 PO
[2017-02-02] MEDS ORDERED: SODIUM CHLORIDE FLUSH 10ML SYR IVF ONE (14:00)
[2017-02-02] MEDS ORDERED: PLEASE ENTER HEIGHT AND WEIGHT MC SCH (14:30)
[2017-02-02 14:45] LABS: HEMATOCRIT 41.1 % (39.2-51.8); HEMOGLOBIN 13.9 g/dL (13.7-18.0); WHITE BLOOD COUNT 5.9 x10^3/uL (3.4-10)
[2017-02-02 14:55] LABS: ASPARTATE AMINO TRANSFERASE 14 U/L (15-37); BLOOD UREA NITROGEN 23 mg/dL (7-18)
[2017-02-02] MEDS ORDERED: PIPERACILLIN/TAZO/PMX 3.375GM 50 ML ONE (19:15)
[2017-02-02] MEDS ORDERED: HEPARIN 5,000 UNITS/ML, 1ML ONE (19:16)
[2017-02-02] MEDS: HEPARIN 5,000 UNITS/ML, 1ML SQ SCH (19:23)
[2017-02-02] MEDS ORDERED: POLYETHYLENE GLYCOL 17 GM PACKET PO PRN (19:30)
[2017-02-02] MEDS ORDERED: ONDANSETRON 2MG/ML, 2ML IVPush PRN (19:30)
[2017-02-02] MEDS ORDERED: TEMAZEPAM 15 MG CAPSULE PO PRN (19:30)
[2017-02-02] MEDS: PIPERACILLIN/TAZO/PMX 3.375GM 50 ML IV SCH (19:36)
[2017-02-02] MEDS: BISACODYL 10 MG SUPP PR SCH (21:00)
[2017-02-02 21:30] VITALS: BP 125/79
[2017-02-02] MEDS: DIPHENHYDRAMINE 25 MG CAPSULE PO PRN (21:35)
[2017-02-02] MEDS: SODIUM CHLORIDE FLUSH 10ML SYR IVF SCH (21:38)
[2017-02-02] MEDS: ACETAMINOPHEN 325 MG TABLET PO PRN (21:39)
[2017-02-03 01:19] VITALS: BP 161/82
[2017-02-03] MEDS: PIPERACILLIN/TAZO/PMX 3.375GM 50 ML IV SCH ×4 (01:24→19:37)
[2017-02-03] MEDS: HEPARIN 5,000 UNITS/ML, 1ML SQ SCH ×3 (03:38→19:30)
[2017-02-03] MEDS: ACETAMINOPHEN 325 MG TABLET PO PRN ×3 (03:49→22:23)
[2017-02-03] MEDS: DIPHENHYDRAMINE 25 MG CAPSULE PO PRN (03:49)
[2017-02-03 04:57] LABS: HEMATOCRIT 41.5 % (39.2-51.8); HEMOGLOBIN 14.2 g/dL (13.7-18.0); WHITE BLOOD COUNT 5.6 x10^3/uL (3.4-10)
[2017-02-03 05:18] LABS: ASPARTATE AMINO TRANSFERASE 14 U/L (15-37); BLOOD UREA NITROGEN 18 mg/dL (7-18)
[2017-02-03] MEDS: CYANOCOBALAMIN 1,000 MCG TABLET PO SCH (07:52)
[2017-02-03] MEDS: SODIUM CHLORIDE FLUSH 10ML SYR IVF SCH ×2 (07:53→19:37)
[2017-02-03] MEDS: SENNA/DOCUSATE TABLET PO SCH (07:53)
[2017-02-03] MEDS: BISACODYL 10 MG SUPP PR SCH ×2 (07:53→21:00)
[2017-02-03] MEDS: FINASTERIDE 5 MG TABLET PO SCH (07:53)
[2017-02-03] MEDS: TAMSULOSIN 0.4 MG CAP.ER.24H PO SCH (07:53)
[2017-02-03 08:00] VITALS: BP 134/76
[2017-02-03 14:00] VITALS: BP 117/78
[2017-02-03 21:50] VITALS: BP 134/79
[2017-02-04] MEDS: PIPERACILLIN/TAZO/PMX 3.375GM 50 ML IV SCH ×4 (01:32→19:19)
[2017-02-04 01:36] VITALS: BP 129/80
[2017-02-04] MEDS: HEPARIN 5,000 UNITS/ML, 1ML SQ SCH ×3 (03:30→19:19)
[2017-02-04 08:10] VITALS: BP 115/66
[2017-02-04] MEDS: SENNA/DOCUSATE TABLET PO SCH (08:15)
[2017-02-04] MEDS: BISACODYL 10 MG SUPP PR SCH ×2 (08:15→19:45)
[2017-02-04] MEDS: TAMSULOSIN 0.4 MG CAP.ER.24H PO SCH (08:15)
[2017-02-04] MEDS: FINASTERIDE 5 MG TABLET PO SCH (08:15)
[2017-02-04] MEDS: CYANOCOBALAMIN 1,000 MCG TABLET PO SCH (08:15)
[2017-02-04] MEDS: SODIUM CHLORIDE FLUSH 10ML SYR IVF SCH ×2 (08:16→19:19)
[2017-02-04] MEDS: DIPHENHYDRAMINE 25 MG CAPSULE PO PRN ×2 (08:38→19:45)
[2017-02-04] MEDS: ACETAMINOPHEN 325 MG TABLET PO PRN ×2 (11:18→19:45)
[2017-02-04 12:24] VITALS: BP 129/76
[2017-02-04 19:23] VITALS: BP 118/76
[2017-02-05] MEDS: PIPERACILLIN/TAZO/PMX 3.375GM 50 ML IV SCH ×4 (01:23→21:15)
[2017-02-05 03:09] VITALS: BP 135/71
[2017-02-05] MEDS: HEPARIN 5,000 UNITS/ML, 1ML SQ SCH ×3 (03:12→19:30)
[2017-02-05] MEDS: SENNA/DOCUSATE TABLET PO SCH (08:08)
[2017-02-05] MEDS: SODIUM CHLORIDE FLUSH 10ML SYR IVF SCH ×2 (08:08→21:00)
[2017-02-05] MEDS: TAMSULOSIN 0.4 MG CAP.ER.24H PO SCH (08:08)
[2017-02-05] MEDS: CYANOCOBALAMIN 1,000 MCG TABLET PO SCH (08:08)
[2017-02-05] MEDS: BISACODYL 10 MG SUPP PR SCH ×2 (08:08→21:00)
[2017-02-05] MEDS: FINASTERIDE 5 MG TABLET PO SCH (08:11)
[2017-02-05] MEDS: DIPHENHYDRAMINE 25 MG CAPSULE PO PRN (08:11)
[2017-02-05 08:41] VITALS: BP 121/81
[2017-02-05 13:21] VITALS: BP 128/73
[2017-02-05] MEDS: ACETAMINOPHEN 325 MG TABLET PO PRN (18:17)
[2017-02-05 20:02] VITALS: BP 148/76
[2017-02-06] MEDS: DIPHENHYDRAMINE 25 MG CAPSULE PO PRN ×3 (00:52→20:59)
[2017-02-06 00:55] VITALS: BP 155/79
[2017-02-06] MEDS: HEPARIN 5,000 UNITS/ML, 1ML SQ SCH ×3 (03:30→19:30)
[2017-02-06] MEDS: PIPERACILLIN/TAZO/PMX 3.375GM 50 ML IV SCH ×4 (03:40→20:59)
[2017-02-06] MEDS: ACETAMINOPHEN 325 MG TABLET PO PRN ×2 (06:17→18:14)
[2017-02-06 08:58] VITALS: BP 136/74
[2017-02-06] MEDS: SODIUM CHLORIDE FLUSH 10ML SYR IVF SCH ×2 (08:58→20:59)
[2017-02-06] MEDS: TAMSULOSIN 0.4 MG CAP.ER.24H PO SCH (08:58)
[2017-02-06] MEDS: SENNA/DOCUSATE TABLET PO SCH (08:59)
[2017-02-06] MEDS: FINASTERIDE 5 MG TABLET PO SCH (08:59)
[2017-02-06] MEDS: BISACODYL 10 MG SUPP PR SCH ×2 (08:59→21:00)
[2017-02-06] MEDS: CYANOCOBALAMIN 1,000 MCG TABLET PO SCH (08:59)
[2017-02-06 14:50] VITALS: BP 151/82
[2017-02-06 18:51] VITALS: BP 158/79
[2017-02-07 01:31] VITALS: BP 154/84
[2017-02-07] MEDS: ACETAMINOPHEN 325 MG TABLET PO PRN ×2 (02:06→20:02)
[2017-02-07] MEDS: HEPARIN 5,000 UNITS/ML, 1ML SQ SCH ×3 (02:07→20:03)
[2017-02-07] MEDS: PIPERACILLIN/TAZO/PMX 3.375GM 50 ML IV SCH ×4 (02:07→20:03)
[2017-02-07] MEDS: DIPHENHYDRAMINE 25 MG CAPSULE PO PRN (05:48)
[2017-02-07 08:40] VITALS: BP 137/79
[2017-02-07] MEDS: SENNA/DOCUSATE TABLET PO SCH (09:00)
[2017-02-07] MEDS: BISACODYL 10 MG SUPP PR SCH ×2 (09:00→20:03)
[2017-02-07] MEDS: FINASTERIDE 5 MG TABLET PO SCH (09:04)
[2017-02-07] MEDS: TAMSULOSIN 0.4 MG CAP.ER.24H PO SCH (09:04)
[2017-02-07] MEDS: CYANOCOBALAMIN 1,000 MCG TABLET PO SCH (09:04)
[2017-02-07] MEDS: SODIUM CHLORIDE FLUSH 10ML SYR IVF SCH ×2 (09:05→20:03)
[2017-02-07] MEDS: HYDROcodone/APAP 5/325 TABLET PO PRN (14:21)
[2017-02-07 15:01] VITALS: BP 146/86
[2017-02-07 18:54] VITALS: BP 115/74
[2017-02-08 00:54] VITALS: BP 157/84
[2017-02-08] MEDS: ACETAMINOPHEN 325 MG TABLET PO PRN (02:32)
[2017-02-08] MEDS: DIPHENHYDRAMINE 25 MG CAPSULE PO PRN ×3 (02:32→23:54)
[2017-02-08] MEDS: HEPARIN 5,000 UNITS/ML, 1ML SQ SCH ×3 (02:33→20:31)
[2017-02-08] MEDS: PIPERACILLIN/TAZO/PMX 3.375GM 50 ML IV SCH ×4 (02:33→20:31)
[2017-02-08 05:41] LABS: HEMATOCRIT 39.1 % (39.2-51.8); HEMOGLOBIN 13.3 g/dL (13.7-18.0); WHITE BLOOD COUNT 5.6 x10^3/uL (3.4-10)
[2017-02-08 05:53] LABS: BLOOD UREA NITROGEN 13 mg/dL (7-18)
[2017-02-08 08:00] VITALS: BP 157/84
[2017-02-08] MEDS: SENNA/DOCUSATE TABLET PO SCH (09:00)
[2017-02-08] MEDS: BISACODYL 10 MG SUPP PR SCH ×2 (09:00→20:31)
[2017-02-08] MEDS: HYDROcodone/APAP 5/325 TABLET PO PRN ×3 (09:55→23:54)
[2017-02-08] MEDS: CYANOCOBALAMIN 1,000 MCG TABLET PO SCH (09:56)
[2017-02-08] MEDS: SODIUM CHLORIDE FLUSH 10ML SYR IVF SCH ×2 (09:56→20:31)
[2017-02-08] MEDS: FINASTERIDE 5 MG TABLET PO SCH (09:56)
[2017-02-08] MEDS: TAMSULOSIN 0.4 MG CAP.ER.24H PO SCH (09:57)
[2017-02-08 10:22] VITALS: BP 157/84
[2017-02-08 10:27] VITALS: BP 157/84
[2017-02-08 13:36] VITALS: BP 114/71
[2017-02-08 19:48] VITALS: BP 125/68
[2017-02-09 02:45] VITALS: BP 123/70
[2017-02-09] MEDS: PIPERACILLIN/TAZO/PMX 3.375GM 50 ML IV SCH ×2 (02:54→09:55)
[2017-02-09] MEDS: HEPARIN 5,000 UNITS/ML, 1ML SQ SCH ×3 (02:54→20:07)
[2017-02-09 05:32] LABS: HEMATOCRIT 40.8 % (39.2-51.8); HEMOGLOBIN 13.7 g/dL (13.7-18.0); WHITE BLOOD COUNT 5.8 x10^3/uL (3.4-10)
[2017-02-09] MEDS: BISACODYL 10 MG SUPP PR SCH ×2 (09:00→20:07)
[2017-02-09] MEDS: SENNA/DOCUSATE TABLET PO SCH (09:00)
[2017-02-09 09:34] VITALS: BP 128/78
[2017-02-09] MEDS: CYANOCOBALAMIN 1,000 MCG TABLET PO SCH (09:54)
[2017-02-09] MEDS: DIPHENHYDRAMINE 25 MG CAPSULE PO PRN ×2 (09:54→17:56)
[2017-02-09] MEDS: SODIUM CHLORIDE FLUSH 10ML SYR IVF SCH ×2 (09:55→20:07)
[2017-02-09] MEDS: HYDROcodone/APAP 5/325 TABLET PO PRN ×2 (09:55→17:56)
[2017-02-09] MEDS: FINASTERIDE 5 MG TABLET PO SCH (09:55)
[2017-02-09] MEDS: TAMSULOSIN 0.4 MG CAP.ER.24H PO SCH (09:55)
[2017-02-09 13:30] VITALS: BP 142/77
[2017-02-09 20:01] VITALS: BP 128/69
[2017-02-10] MEDS: HEPARIN 5,000 UNITS/ML, 1ML SQ SCH ×3 (02:55→19:30)
[2017-02-10 03:25] VITALS: BP 138/74
[2017-02-10] MEDS: DIPHENHYDRAMINE 25 MG CAPSULE PO PRN ×4 (03:42→23:59)
[2017-02-10] MEDS: HYDROcodone/APAP 5/325 TABLET PO PRN ×4 (03:42→23:58)
[2017-02-10 05:19] LABS: HEMATOCRIT 40.6 % (39.2-51.8); HEMOGLOBIN 13.7 g/dL (13.7-18.0); WHITE BLOOD COUNT 4.4 x10^3/uL (3.4-10)
[2017-02-10 05:40] LABS: BLOOD UREA NITROGEN 19 mg/dL (7-18)
[2017-02-10] MEDS: SENNA/DOCUSATE TABLET PO SCH (09:00)
[2017-02-10] MEDS: SODIUM CHLORIDE FLUSH 10ML SYR IVF SCH (09:00)
[2017-02-10] MEDS: BISACODYL 10 MG SUPP PR SCH ×2 (09:00→21:00)
[2017-02-10 09:54] VITALS: BP 134/66
[2017-02-10] MEDS: CYANOCOBALAMIN 1,000 MCG TABLET PO SCH (10:15)
[2017-02-10] MEDS: TAMSULOSIN 0.4 MG CAP.ER.24H PO SCH (10:15)
[2017-02-10] MEDS: FINASTERIDE 5 MG TABLET PO SCH (10:15)
[2017-02-10 12:59] VITALS: BP 127/77
[2017-02-10 19:15] VITALS: BP 135/74
[2017-02-11 00:49] VITALS: BP 151/83
[2017-02-11] MEDS: HEPARIN 5,000 UNITS/ML, 1ML SQ SCH ×3 (03:11→20:50)
[2017-02-11 05:39] LABS: BLOOD UREA NITROGEN 17 mg/dL (7-18)
[2017-02-11 05:42] LABS: HEMATOCRIT 40.1 % (39.2-51.8); HEMOGLOBIN 13.6 g/dL (13.7-18.0); WHITE BLOOD COUNT 4.8 x10^3/uL (3.4-10)
[2017-02-11 06:45] VITALS: BP 157/82
[2017-02-11] MEDS: SODIUM CHLORIDE FLUSH 10ML SYR IVF SCH ×3 (08:40→20:51)
[2017-02-11] MEDS: CYANOCOBALAMIN 1,000 MCG TABLET PO SCH (08:40)
[2017-02-11] MEDS: FINASTERIDE 5 MG TABLET PO SCH (08:40)
[2017-02-11] MEDS: TAMSULOSIN 0.4 MG CAP.ER.24H PO SCH (08:40)
[2017-02-11] MEDS: SENNA/DOCUSATE TABLET PO SCH (08:41)
[2017-02-11] MEDS: DIPHENHYDRAMINE 25 MG CAPSULE PO PRN ×2 (08:41→16:24)
[2017-02-11] MEDS: BISACODYL 10 MG SUPP PR SCH ×2 (08:41→20:43)
[2017-02-11] MEDS: HYDROcodone/APAP 5/325 TABLET PO PRN ×2 (08:41→16:24)
[2017-02-11 12:24] VITALS: BP 131/72
[2017-02-11 18:31] VITALS: BP 130/77
[2017-02-12] MEDS: HYDROcodone/APAP 5/325 TABLET PO PRN ×4 (00:21→18:25)
[2017-02-12] MEDS: DIPHENHYDRAMINE 25 MG CAPSULE PO PRN ×3 (00:21→18:26)
[2017-02-12 03:30] VITALS: BP 129/65
[2017-02-12] MEDS: HEPARIN 5,000 UNITS/ML, 1ML SQ SCH ×3 (03:30→21:29)
[2017-02-12 05:34] LABS: HEMATOCRIT 41.2 % (39.2-51.8); WHITE BLOOD COUNT 4.7 x10^3/uL (3.4-10)
[2017-02-12 05:44] LABS: BLOOD UREA NITROGEN 18 mg/dL (7-18)
[2017-02-12 08:00] VITALS: BP 120/74
[2017-02-12] MEDS: BISACODYL 10 MG SUPP PR SCH ×2 (09:00→21:00)
[2017-02-12] MEDS: SENNA/DOCUSATE TABLET PO SCH (09:00)
[2017-02-12] MEDS: SODIUM CHLORIDE FLUSH 10ML SYR IVF SCH ×2 (09:00→21:00)
[2017-02-12] MEDS: TAMSULOSIN 0.4 MG CAP.ER.24H PO SCH (09:49)
[2017-02-12] MEDS: FINASTERIDE 5 MG TABLET PO SCH (09:49)
[2017-02-12] MEDS: CYANOCOBALAMIN 1,000 MCG TABLET PO SCH (09:49)
[2017-02-12 14:00] VITALS: BP 129/75
[2017-02-12] MEDS ORDERED: POLYETHYLENE GLYCOL 17 GM PACKET PO PRN ×2 (18:30→19:00)
[2017-02-12] MEDS ORDERED: TEMAZEPAM 15 MG CAPSULE PO PRN ×2 (18:30→19:00)
[2017-02-12] MEDS ORDERED: ONDANSETRON 2MG/ML, 2ML IVPush PRN ×2 (18:30→19:00)
[2017-02-12 19:33] VITALS: BP 121/73
[2017-02-12] MEDS ORDERED: SODIUM CHLORIDE FLUSH 10ML SYR IVF SCH (21:00)
[2017-02-13] MEDS: DIPHENHYDRAMINE 25 MG CAPSULE PO PRN ×3 (03:01→21:07)
[2017-02-13] MEDS: HYDROcodone/APAP 5/325 TABLET PO PRN ×3 (03:01→21:08)
[2017-02-13] MEDS: HEPARIN 5,000 UNITS/ML, 1ML SQ SCH ×3 (03:02→20:29)
[2017-02-13 03:15] VITALS: BP 125/80
[2017-02-13 05:34] LABS: HEMATOCRIT 39.9 % (39.2-51.8); HEMOGLOBIN 13.6 g/dL (13.7-18.0); WHITE BLOOD COUNT 4.8 x10^3/uL (3.4-10)
[2017-02-13 05:48] LABS: BLOOD UREA NITROGEN 17 mg/dL (7-18)
[2017-02-13 07:41] VITALS: BP 121/70
[2017-02-13] MEDS: SODIUM CHLORIDE FLUSH 10ML SYR IVF SCH ×2 (08:26→19:19)
[2017-02-13] MEDS: BISACODYL 10 MG SUPP PR SCH (08:27)
[2017-02-13] MEDS: SENNA/DOCUSATE TABLET PO SCH (08:27)
[2017-02-13] MEDS: TAMSULOSIN 0.4 MG CAP.ER.24H PO SCH (09:04)
[2017-02-13] MEDS: CYANOCOBALAMIN 1,000 MCG TABLET PO SCH (09:04)
[2017-02-13] MEDS: FINASTERIDE 5 MG TABLET PO SCH (09:04)
[2017-02-13] MEDS ORDERED: BISACODYL 10 MG SUPP PR PRN (11:30)
[2017-02-13] MEDS ORDERED: SENNA/DOCUSATE TABLET PO PRN (11:30)
[2017-02-13 13:17] VITALS: BP 134/81
[2017-02-13 18:34] VITALS: BP 137/78
[2017-02-14 02:55] VITALS: BP 140/80
[2017-02-14] MEDS: HEPARIN 5,000 UNITS/ML, 1ML SQ SCH ×3 (03:00→19:31)
[2017-02-14] MEDS: HYDROcodone/APAP 5/325 TABLET PO PRN ×3 (05:12→17:31)
[2017-02-14] MEDS: DIPHENHYDRAMINE 25 MG CAPSULE PO PRN ×3 (05:12→17:31)
[2017-02-14 08:38] VITALS: BP 120/76
[2017-02-14] MEDS: SODIUM CHLORIDE FLUSH 10ML SYR IVF SCH ×2 (09:00→19:19)
[2017-02-14] MEDS: FINASTERIDE 5 MG TABLET PO SCH (09:45)
[2017-02-14] MEDS: CYANOCOBALAMIN 1,000 MCG TABLET PO SCH (09:45)
[2017-02-14] MEDS: TAMSULOSIN 0.4 MG CAP.ER.24H PO SCH (09:45)
[2017-02-14 12:00] VITALS: BP 127/72
[2017-02-14 19:54] VITALS: BP 113/64
[2017-02-15] MEDS: DIPHENHYDRAMINE 25 MG CAPSULE PO PRN ×4 (01:16→22:05)
[2017-02-15] MEDS: HYDROcodone/APAP 5/325 TABLET PO PRN ×4 (01:16→22:05)
[2017-02-15 01:45] VITALS: BP 121/72
[2017-02-15] MEDS: HEPARIN 5,000 UNITS/ML, 1ML SQ SCH ×3 (03:30→19:51)
[2017-02-15 05:19] LABS: HEMATOCRIT 39.9 % (39.2-51.8); HEMOGLOBIN 13.5 g/dL (13.7-18.0); WHITE BLOOD COUNT 4.3 x10^3/uL (3.4-10)
[2017-02-15 05:40] LABS: BLOOD UREA NITROGEN 22 mg/dL (7-18)
[2017-02-15] MEDS: SODIUM CHLORIDE FLUSH 10ML SYR IVF SCH ×2 (08:14→19:32)
[2017-02-15] MEDS: TAMSULOSIN 0.4 MG CAP.ER.24H PO SCH (08:15)
[2017-02-15] MEDS: FINASTERIDE 5 MG TABLET PO SCH (08:15)
[2017-02-15] MEDS: CYANOCOBALAMIN 1,000 MCG TABLET PO SCH (08:15)
[2017-02-15 09:46] VITALS: BP 115/70
[2017-02-15 15:28] VITALS: BP 128/76
[2017-02-15 19:45] VITALS: BP 128/77
[2017-02-16] MEDS: HEPARIN 5,000 UNITS/ML, 1ML SQ SCH ×3 (03:30→19:45)
[2017-02-16 04:44] VITALS: BP 121/74
[2017-02-16 05:26] LABS: HEMATOCRIT 40.7 % (39.2-51.8); HEMOGLOBIN 13.7 g/dL (13.7-18.0); WHITE BLOOD COUNT 5.4 x10^3/uL (3.4-10)
[2017-02-16 05:33] LABS: BLOOD UREA NITROGEN 21 mg/dL (7-18)
[2017-02-16] MEDS: SODIUM CHLORIDE FLUSH 10ML SYR IVF SCH ×2 (07:34→21:00)
[2017-02-16 08:25] VITALS: BP 118/74
[2017-02-16] MEDS: FINASTERIDE 5 MG TABLET PO SCH (08:58)
[2017-02-16] MEDS: TAMSULOSIN 0.4 MG CAP.ER.24H PO SCH (08:58)
[2017-02-16] MEDS: HYDROcodone/APAP 5/325 TABLET PO PRN ×2 (08:58→17:04)
[2017-02-16] MEDS: DIPHENHYDRAMINE 25 MG CAPSULE PO PRN ×2 (08:58→17:04)
[2017-02-16] MEDS: CYANOCOBALAMIN 1,000 MCG TABLET PO SCH (08:59)
[2017-02-16 16:55] VITALS: BP 132/79
[2017-02-16 21:08] VITALS: BP 126/71
[2017-02-17] MEDS: HYDROcodone/APAP 5/325 TABLET PO PRN ×2 (01:20→08:05)
[2017-02-17 02:50] VITALS: BP 133/74
[2017-02-17] MEDS: HEPARIN 5,000 UNITS/ML, 1ML SQ SCH ×3 (03:26→19:13)
[2017-02-17 07:43] VITALS: BP 127/79
[2017-02-17] MEDS: TAMSULOSIN 0.4 MG CAP.ER.24H PO SCH (08:05)
[2017-02-17] MEDS: FINASTERIDE 5 MG TABLET PO SCH (08:06)
[2017-02-17] MEDS: CYANOCOBALAMIN 1,000 MCG TABLET PO SCH (08:06)
[2017-02-17] MEDS: SODIUM CHLORIDE FLUSH 10ML SYR IVF SCH ×2 (08:07→19:13)
[2017-02-17] MEDS: DIPHENHYDRAMINE 25 MG CAPSULE PO PRN (08:12)
[2017-02-17] MEDS ORDERED: DIPH25CA61 PO (11:59)
[2017-02-17] MEDS ORDERED: MULT-738 PO (11:59)
[2017-02-17] MEDS ORDERED: HEPA50002 SQ (11:59)
[2017-02-17 15:15] VITALS: BP 131/77
[2017-02-17 19:49] VITALS: BP 141/79
[2017-02-18 01:12] VITALS: BP 144/84
[2017-02-18] MEDS: HYDROcodone/APAP 5/325 TABLET PO PRN ×3 (02:15→18:46)
[2017-02-18] MEDS: DIPHENHYDRAMINE 25 MG CAPSULE PO PRN (02:15)
[2017-02-18] MEDS: HEPARIN 5,000 UNITS/ML, 1ML SQ SCH ×3 (02:38→19:56)
[2017-02-18 07:49] VITALS: BP 137/80
[2017-02-18] MEDS: SODIUM CHLORIDE FLUSH 10ML SYR IVF SCH ×3 (09:00→19:58)
[2017-02-18] MEDS: TAMSULOSIN 0.4 MG CAP.ER.24H PO SCH (10:42)
[2017-02-18] MEDS: FINASTERIDE 5 MG TABLET PO SCH (10:42)
[2017-02-18] MEDS: CYANOCOBALAMIN 1,000 MCG TABLET PO SCH (10:42)
[2017-02-18] MEDS ORDERED: morphine SULFATE 10 MG/ML, 1ML IVPush ONE (15:00)
[2017-02-18 15:48] VITALS: BP 143/82
[2017-02-18] MEDS ORDERED: SENNA/DOCUSATE TABLET PO PRN (19:30)
[2017-02-18] MEDS ORDERED: BISACODYL 10 MG SUPP PR PRN (19:30)
[2017-02-18] MEDS ORDERED: POLYETHYLENE GLYCOL 17 GM PACKET PO PRN (19:30)
[2017-02-18] MEDS ORDERED: TEMAZEPAM 15 MG CAPSULE PO PRN (19:30)
[2017-02-19 00:18] VITALS: BP 118/75
[2017-02-19] MEDS: HYDROcodone/APAP 5/325 TABLET PO PRN ×3 (01:25→17:57)
[2017-02-19] MEDS: DIPHENHYDRAMINE 25 MG CAPSULE PO PRN ×3 (01:25→17:57)
[2017-02-19] MEDS: HEPARIN 5,000 UNITS/ML, 1ML SQ SCH ×3 (03:30→19:58)
[2017-02-19 08:25] VITALS: BP 137/80
[2017-02-19] MEDS: CYANOCOBALAMIN 1,000 MCG TABLET PO SCH (09:12)
[2017-02-19] MEDS: TAMSULOSIN 0.4 MG CAP.ER.24H PO SCH (09:12)
[2017-02-19] MEDS: FINASTERIDE 5 MG TABLET PO SCH (09:12)
[2017-02-19 15:30] VITALS: BP 120/72
[2017-02-19] MEDS: SODIUM CHLORIDE FLUSH 10ML SYR IVF SCH (21:00)
[2017-02-19 21:30] VITALS: BP 124/74
[2017-02-20] MEDS: DIPHENHYDRAMINE 25 MG CAPSULE PO PRN ×2 (02:24→09:16)
[2017-02-20] MEDS: HYDROcodone/APAP 5/325 TABLET PO PRN ×3 (02:24→09:21)
[2017-02-20 02:37] VITALS: BP 150/82
[2017-02-20] MEDS: HEPARIN 5,000 UNITS/ML, 1ML SQ SCH ×2 (04:30→12:30)
[2017-02-20 08:35] VITALS: BP 135/75
[2017-02-20] MEDS: SODIUM CHLORIDE FLUSH 10ML SYR IVF SCH (08:54)
[2017-02-20] MEDS: TAMSULOSIN 0.4 MG CAP.ER.24H PO SCH (09:15)
[2017-02-20] MEDS: FINASTERIDE 5 MG TABLET PO SCH (09:16)
[2017-02-20] MEDS: CYANOCOBALAMIN 1,000 MCG TABLET PO SCH (09:16)
== END 2017-02-20 14:05 | disposition home or self-care (01) | DRG 689 ==
LOC: ED 18:14 → EDIP 18:26 → 3NE 20:10
PROVIDERS: ADMIT Internal Medicine; ATTEND Family Medicine
PROC: 0T9B70Z Drainage of Bladder with Drainage Device, Via Natural or Artificial Opening (ICD-10-PCS; principal; 2017-02-02)
DX: N39.0 Urinary tract infection, site not specified (principal); E43 Unspecified severe protein-calorie malnutrition; L89.159 Pressure ulcer of sacral region, unspecified stage; D75.89 Other specified diseases of blood and blood-forming organs; B96.4 Proteus (mirabilis) (morganii) as the cause of diseases classified elsewhere; Z68.1 Body mass index [BMI] 19.9 or less, adult; K56.49 Other impaction of intestine; E53.8 Deficiency of other specified B group vitamins; I10 Essential (primary) hypertension; K56.41 Fecal impaction; L29.9 Pruritus, unspecified; N40.0 Benign prostatic hyperplasia without lower urinary tract symptoms; R62.7 Adult failure to thrive; Z16.24 Resistance to multiple antibiotics; Z66 Do not resuscitate; Z74.01 Bed confinement status; Z87.440 Personal history of urinary (tract) infections; Z91.81 History of falling
CPT/HCPCS: 36415; 74020; 80048; 80053; 81001; 83690; 85025; 87040; 87077; 87086; 87186; 99285; J1644; J2543; Q0163

== ENCOUNTER 2017-02-20 17:55 | Inpatient (IN) | payer MEDICARE ==
[~2017-02-20] VITALS: Ht 188 cm; Wt 66.8 kg
[~2017-02-20 17:55] MED LIST changes: +DIPH25CA61 PO; +HEPA50002 SQ; +MULT-738 PO
[2017-02-20] MEDS ORDERED: SODIUM CHLORIDE 0.9% 1,000ML IVBOLUS ONE (18:30)
[2017-02-20] MEDS ORDERED: SODIUM CHLORIDE FLUSH 10ML SYR IVF ONE (18:30)
[2017-02-20] MEDS ORDERED: MORPHINE SULFATE 4 MG/ML, 1ML IVPush PRN (18:30)
[2017-02-20] MEDS ORDERED: ONDANSETRON 2MG/ML, 2ML IVPush ONE (18:30)
[2017-02-20] MEDS ORDERED: morphine SULFATE 10 MG/ML, 1ML ONE (18:39)
[2017-02-20] MEDS ORDERED: ONDANSETRON 2MG/ML, 2ML ONE ×2 (18:40→22:52)
[2017-02-20 18:53] LABS: HEMATOCRIT 39.9 % (39.2-51.8); HEMOGLOBIN 13.6 g/dL (13.7-18.0); WHITE BLOOD COUNT 5.4 x10^3/uL (3.4-10)
[2017-02-20 18:59] LABS: ASPARTATE AMINO TRANSFERASE 12 U/L (15-37); BLOOD UREA NITROGEN 26 mg/dL (7-18)
[2017-02-20 20:15] LABS: PATH.CAST-FLAG NOT PRESENT; SPERM-FLAG NOT PRESENT; SRC-FLAG NOT PRESENT; XTAL-FLAG NOT PRESENT; YLC-FLAG NOT PRESENT
[2017-02-20] MEDS ORDERED: CEFTRIAXONE PMX 1GM/50ML 50 ML IV ONE (21:00)
[2017-02-20] MEDS ORDERED: CEFTRIAXONE PMX 1GM/50ML 50 ML ONE (22:52)
[2017-02-20] MEDS ORDERED: ACETAMINOPHEN 325 MG TABLET PO PRN (23:00)
[2017-02-20] MEDS ORDERED: TEMAZEPAM 15 MG CAPSULE PO PRN (23:00)
[2017-02-20] MEDS ORDERED: POLYETHYLENE GLYCOL 17 GM PACKET PO PRN (23:00)
[2017-02-20] MEDS ORDERED: BISACODYL 10 MG SUPP PR PRN (23:00)
[2017-02-20] MEDS ORDERED: ONDANSETRON 2MG/ML, 2ML IVPush PRN (23:00)
[2017-02-21] MEDS: HEPARIN 5,000 UNITS/ML, 1ML SQ SCH ×3 (00:21→18:02)
[2017-02-21] MEDS: OXYcodone IR 5MG TABLET PO PRN ×3 (00:21→14:05)
[2017-02-21] MEDS: DIPHENHYDRAMINE 25 MG CAPSULE PO PRN (00:21)
[2017-02-21] MEDS: SODIUM CHLORIDE 0.9% 1,000 ML IV SCH ×2 (00:21→13:53)
[2017-02-21] MEDS: PIPERACILLIN/TAZO/PMX 3.375GM 50 ML IV SCH ×4 (00:55→19:20)
[2017-02-21 01:12] VITALS: BP 152/99
[2017-02-21 05:33] LABS: HEMATOCRIT 38.5 % (39.2-51.8); HEMOGLOBIN 13.1 g/dL (13.7-18.0); WHITE BLOOD COUNT 4.5 x10^3/uL (3.4-10)
[2017-02-21 05:48] LABS: BLOOD UREA NITROGEN 20 mg/dL (7-18)
[2017-02-21 05:51] LABS: ASPARTATE AMINO TRANSFERASE 10 U/L (15-37)
[2017-02-21 07:59] VITALS: BP 118/75
[2017-02-21] MEDS: SENNA/DOCUSATE TABLET PO SCH (09:00)
[2017-02-21] MEDS: CYANOCOBALAMIN 1,000 MCG TABLET PO SCH (09:53)
[2017-02-21] MEDS: MULTIVITAMIN 1 TABLET PO SCH (09:53)
[2017-02-21] MEDS: FINASTERIDE 5 MG TABLET PO SCH (09:53)
[2017-02-21] MEDS: TAMSULOSIN 0.4 MG CAP.ER.24H PO SCH (09:53)
[2017-02-21 12:44] VITALS: BP 128/81
[2017-02-21 19:16] VITALS: BP 116/72
[2017-02-21] MEDS: HYDROcodone/APAP 5/325 TABLET PO PRN (19:44)
[2017-02-22] MEDS: HEPARIN 5,000 UNITS/ML, 1ML SQ SCH ×3 (02:07→17:27)
[2017-02-22] MEDS: PIPERACILLIN/TAZO/PMX 3.375GM 50 ML IV SCH ×4 (02:07→20:32)
[2017-02-22 02:19] VITALS: BP 131/78
[2017-02-22] MEDS: SODIUM CHLORIDE 0.9% 1,000 ML IV SCH ×2 (04:26→17:27)
[2017-02-22 05:45] LABS: HEMATOCRIT 39.5 % (39.2-51.8); HEMOGLOBIN 13.4 g/dL (13.7-18.0); WHITE BLOOD COUNT 4.3 x10^3/uL (3.4-10)
[2017-02-22 05:58] LABS: BLOOD UREA NITROGEN 14 mg/dL (7-18)
[2017-02-22] MEDS: CYANOCOBALAMIN 1,000 MCG TABLET PO SCH (08:52)
[2017-02-22] MEDS: SENNA/DOCUSATE TABLET PO SCH (08:53)
[2017-02-22] MEDS: TAMSULOSIN 0.4 MG CAP.ER.24H PO SCH (08:53)
[2017-02-22] MEDS: FINASTERIDE 5 MG TABLET PO SCH (08:53)
[2017-02-22] MEDS: MULTIVITAMIN 1 TABLET PO SCH (08:53)
[2017-02-22 08:56] VITALS: BP 144/98
[2017-02-22] MEDS: DIPHENHYDRAMINE 25 MG CAPSULE PO PRN (10:15)
[2017-02-22] MEDS: HYDROcodone/APAP 5/325 TABLET PO PRN ×2 (10:15→17:27)
[2017-02-22 13:13] VITALS: BP 128/82
[2017-02-22 20:00] VITALS: BP 128/73
[2017-02-23] MEDS: DIPHENHYDRAMINE 25 MG CAPSULE PO PRN ×3 (01:15→18:33)
[2017-02-23] MEDS: HYDROcodone/APAP 5/325 TABLET PO PRN ×3 (01:15→18:33)
[2017-02-23 01:17] VITALS: BP 140/82
[2017-02-23] MEDS: HEPARIN 5,000 UNITS/ML, 1ML SQ SCH ×3 (02:53→18:33)
[2017-02-23] MEDS: PIPERACILLIN/TAZO/PMX 3.375GM 50 ML IV SCH ×2 (02:53→11:40)
[2017-02-23 05:43] LABS: HEMOGLOBIN 13.1 g/dL (13.7-18.0); WHITE BLOOD COUNT 3.6 x10^3/uL (3.4-10)
[2017-02-23 05:56] LABS: BLOOD UREA NITROGEN 14 mg/dL (7-18)
[2017-02-23] MEDS: SODIUM CHLORIDE 0.9% 1,000 ML IV SCH ×2 (06:18→22:20)
[2017-02-23 06:37] VITALS: BP 130/83
[2017-02-23] MEDS: SENNA/DOCUSATE TABLET PO SCH (09:00)
[2017-02-23] MEDS: MULTIVITAMIN 1 TABLET PO SCH (11:40)
[2017-02-23] MEDS: CYANOCOBALAMIN 1,000 MCG TABLET PO SCH (11:40)
[2017-02-23] MEDS: TAMSULOSIN 0.4 MG CAP.ER.24H PO SCH (11:41)
[2017-02-23] MEDS: FINASTERIDE 5 MG TABLET PO SCH (11:41)
[2017-02-23 13:33] VITALS: BP 119/76
[2017-02-23 19:54] VITALS: BP 125/76
[2017-02-23] MEDS: CEFTRIAXONE PMX 1GM/50ML 50 ML IV SCH (22:20)
[2017-02-24 00:24] VITALS: BP 126/81
[2017-02-24] MEDS: HEPARIN 5,000 UNITS/ML, 1ML SQ SCH ×3 (02:00→17:28)
[2017-02-24 06:37] VITALS: BP_SYST 144; BP_SYST 149; BP_DIAS 92; BP_DIAS 94
[2017-02-24] MEDS: CYANOCOBALAMIN 1,000 MCG TABLET PO SCH (08:56)
[2017-02-24] MEDS: TAMSULOSIN 0.4 MG CAP.ER.24H PO SCH (08:57)
[2017-02-24] MEDS: FINASTERIDE 5 MG TABLET PO SCH (08:57)
[2017-02-24] MEDS: MULTIVITAMIN 1 TABLET PO SCH (08:57)
[2017-02-24] MEDS: SENNA/DOCUSATE TABLET PO SCH (08:57)
[2017-02-24] MEDS: DIPHENHYDRAMINE 25 MG CAPSULE PO PRN (09:03)
[2017-02-24] MEDS: HYDROcodone/APAP 5/325 TABLET PO PRN ×2 (09:03→18:30)
[2017-02-24] MEDS: SODIUM CHLORIDE 0.9% 1,000 ML IV SCH (12:42)
[2017-02-24 14:00] VITALS: BP 128/73
[2017-02-24 18:46] VITALS: BP 121/80
[2017-02-24] MEDS: CEFTRIAXONE PMX 1GM/50ML 50 ML IV SCH (20:31)
[2017-02-25] MEDS: SODIUM CHLORIDE 0.9% 1,000 ML IV SCH ×2 (02:04→19:05)
[2017-02-25] MEDS: HYDROcodone/APAP 5/325 TABLET PO PRN ×4 (02:05→22:01)
[2017-02-25] MEDS: DIPHENHYDRAMINE 25 MG CAPSULE PO PRN ×4 (02:05→22:01)
[2017-02-25] MEDS: HEPARIN 5,000 UNITS/ML, 1ML SQ SCH ×3 (02:05→18:00)
[2017-02-25 02:25] VITALS: BP 138/84
[2017-02-25 07:58] VITALS: BP 141/92
[2017-02-25] MEDS: TAMSULOSIN 0.4 MG CAP.ER.24H PO SCH (09:06)
[2017-02-25] MEDS: CYANOCOBALAMIN 1,000 MCG TABLET PO SCH (09:07)
[2017-02-25] MEDS: MULTIVITAMIN 1 TABLET PO SCH (09:07)
[2017-02-25] MEDS: SENNA/DOCUSATE TABLET PO SCH (09:07)
[2017-02-25] MEDS: FINASTERIDE 5 MG TABLET PO SCH (09:07)
[2017-02-25 13:53] VITALS: BP 125/78
[2017-02-25 20:05] VITALS: BP 128/77
[2017-02-25] MEDS: CEFTRIAXONE PMX 1GM/50ML 50 ML IV SCH (21:17)
[2017-02-26 02:00] VITALS: BP 128/80
[2017-02-26] MEDS: HEPARIN 5,000 UNITS/ML, 1ML SQ SCH ×3 (02:38→20:39)
[2017-02-26] MEDS: DIPHENHYDRAMINE 25 MG CAPSULE PO PRN ×3 (04:24→17:50)
[2017-02-26] MEDS: HYDROcodone/APAP 5/325 TABLET PO PRN ×3 (04:25→17:50)
[2017-02-26 05:55] LABS: HEMATOCRIT 38.1 % (39.2-51.8); HEMOGLOBIN 13.1 g/dL (13.7-18.0); WHITE BLOOD COUNT 3.7 x10^3/uL (3.4-10)
[2017-02-26 06:07] LABS: BLOOD UREA NITROGEN 14 mg/dL (7-18)
[2017-02-26 06:37] VITALS: BP 154/75
[2017-02-26] MEDS: FINASTERIDE 5 MG TABLET PO SCH (08:36)
[2017-02-26] MEDS: TAMSULOSIN 0.4 MG CAP.ER.24H PO SCH (08:36)
[2017-02-26] MEDS: MULTIVITAMIN 1 TABLET PO SCH (08:36)
[2017-02-26] MEDS: SODIUM CHLORIDE 0.9% 1,000 ML IV SCH ×2 (08:36→22:14)
[2017-02-26] MEDS: CYANOCOBALAMIN 1,000 MCG TABLET PO SCH (08:36)
[2017-02-26] MEDS: SENNA/DOCUSATE TABLET PO SCH (08:36)
[2017-02-26 12:53] VITALS: BP 144/90
[2017-02-26 19:27] VITALS: BP 128/84
[2017-02-26] MEDS: CEFTRIAXONE PMX 1GM/50ML 50 ML IV SCH (20:39)
[2017-02-27] MEDS: DIPHENHYDRAMINE 25 MG CAPSULE PO PRN ×4 (04:00→23:41)
[2017-02-27] MEDS: HEPARIN 5,000 UNITS/ML, 1ML SQ SCH ×3 (04:00→20:26)
[2017-02-27] MEDS: HYDROcodone/APAP 5/325 TABLET PO PRN ×4 (04:00→23:41)
[2017-02-27 04:26] VITALS: BP 135/88
[2017-02-27 07:56] VITALS: BP 144/90
[2017-02-27] MEDS: SENNA/DOCUSATE TABLET PO SCH (08:59)
[2017-02-27] MEDS: CYANOCOBALAMIN 1,000 MCG TABLET PO SCH (08:59)
[2017-02-27] MEDS: FINASTERIDE 5 MG TABLET PO SCH (08:59)
[2017-02-27] MEDS: TAMSULOSIN 0.4 MG CAP.ER.24H PO SCH (08:59)
[2017-02-27] MEDS: MULTIVITAMIN 1 TABLET PO SCH (08:59)
[2017-02-27] MEDS: SODIUM CHLORIDE 0.9% 1,000 ML IV SCH ×2 (12:09→23:46)
[2017-02-27 14:00] VITALS: BP 145/87
[2017-02-27 19:18] VITALS: BP 134/85
[2017-02-27] MEDS: CEFTRIAXONE PMX 1GM/50ML 50 ML IV SCH (21:54)
[2017-02-28 03:00] VITALS: BP 133/72
[2017-02-28] MEDS: HEPARIN 5,000 UNITS/ML, 1ML SQ SCH ×3 (03:48→21:59)
[2017-02-28 08:59] VITALS: BP 140/87
[2017-02-28] MEDS: SENNA/DOCUSATE TABLET PO SCH (09:00)
[2017-02-28] MEDS: FINASTERIDE 5 MG TABLET PO SCH (09:49)
[2017-02-28] MEDS: HYDROcodone/APAP 5/325 TABLET PO PRN ×3 (09:49→21:58)
[2017-02-28] MEDS: TAMSULOSIN 0.4 MG CAP.ER.24H PO SCH (09:49)
[2017-02-28] MEDS: MULTIVITAMIN 1 TABLET PO SCH (09:49)
[2017-02-28] MEDS: CYANOCOBALAMIN 1,000 MCG TABLET PO SCH (09:49)
[2017-02-28] MEDS: DIPHENHYDRAMINE 25 MG CAPSULE PO PRN ×3 (09:49→21:59)
[2017-02-28] MEDS: SODIUM CHLORIDE 0.9% 1,000 ML IV SCH (13:04)
[2017-02-28 15:50] VITALS: BP 127/79
[2017-02-28 20:18] VITALS: BP 139/82
[2017-02-28] MEDS: CEFTRIAXONE PMX 1GM/50ML 50 ML IV SCH (21:59)
[2017-03-01 02:43] VITALS: BP 139/88
[2017-03-01] MEDS: SODIUM CHLORIDE 0.9% 1,000 ML IV SCH ×2 (02:45→17:17)
[2017-03-01 03:12] LABS: PATH.CAST-FLAG NOT PRESENT; SPERM-FLAG NOT PRESENT; SRC-FLAG NOT PRESENT; XTAL-FLAG NOT PRESENT; YLC-FLAG NOT PRESENT
[2017-03-01] MEDS: DIPHENHYDRAMINE 25 MG CAPSULE PO PRN ×3 (04:18→17:18)
[2017-03-01] MEDS: HYDROcodone/APAP 5/325 TABLET PO PRN ×3 (04:18→17:18)
[2017-03-01] MEDS: HEPARIN 5,000 UNITS/ML, 1ML SQ SCH ×2 (05:27→17:18)
[2017-03-01 08:40] VITALS: BP 142/83
[2017-03-01] MEDS: TAMSULOSIN 0.4 MG CAP.ER.24H PO SCH (10:24)
[2017-03-01] MEDS: MULTIVITAMIN 1 TABLET PO SCH (10:24)
[2017-03-01] MEDS: CYANOCOBALAMIN 1,000 MCG TABLET PO SCH (10:24)
[2017-03-01] MEDS: FINASTERIDE 5 MG TABLET PO SCH (10:24)
[2017-03-01] MEDS: SENNA/DOCUSATE TABLET PO SCH (10:25)
[2017-03-01 14:44] VITALS: BP 135/85
[2017-03-01 20:14] VITALS: BP 139/77
[2017-03-01] MEDS: CEFTRIAXONE PMX 1GM/50ML 50 ML IV SCH (21:34)
[2017-03-02] MEDS: DIPHENHYDRAMINE 25 MG CAPSULE PO PRN ×3 (00:17→18:44)
[2017-03-02] MEDS: HYDROcodone/APAP 5/325 TABLET PO PRN ×3 (00:17→18:44)
[2017-03-02] MEDS: HEPARIN 5,000 UNITS/ML, 1ML SQ SCH ×3 (00:28→20:49)
[2017-03-02 01:08] VITALS: BP 137/84
[2017-03-02 06:43] VITALS: BP 140/88
[2017-03-02] MEDS: SENNA/DOCUSATE TABLET PO SCH (09:00)
[2017-03-02] MEDS: MULTIVITAMIN 1 TABLET PO SCH (13:25)
[2017-03-02] MEDS: FINASTERIDE 5 MG TABLET PO SCH (13:25)
[2017-03-02] MEDS: CYANOCOBALAMIN 1,000 MCG TABLET PO SCH (13:25)
[2017-03-02] MEDS: SODIUM CHLORIDE 0.9% 1,000 ML IV SCH (13:25)
[2017-03-02] MEDS: TAMSULOSIN 0.4 MG CAP.ER.24H PO SCH (13:25)
[2017-03-02 13:56] VITALS: BP 142/87
[2017-03-02] MEDS: CEFTRIAXONE PMX 1GM/50ML 50 ML IV SCH (20:49)
[2017-03-03 00:12] VITALS: BP 132/87
[2017-03-03] MEDS: HYDROcodone/APAP 5/325 TABLET PO PRN ×4 (00:57→20:07)
[2017-03-03] MEDS: DIPHENHYDRAMINE 25 MG CAPSULE PO PRN ×4 (00:57→20:07)
[2017-03-03] MEDS: SODIUM CHLORIDE 0.9% 1,000 ML IV SCH (02:03)
[2017-03-03] MEDS: HEPARIN 5,000 UNITS/ML, 1ML SQ SCH ×3 (04:14→20:07)
[2017-03-03 06:13] LABS: HEMATOCRIT 38.9 % (39.2-51.8); HEMOGLOBIN 13.4 g/dL (13.7-18.0); WHITE BLOOD COUNT 4.9 x10^3/uL (3.4-10)
[2017-03-03 06:22] LABS: BLOOD UREA NITROGEN 18 mg/dL (7-18)
[2017-03-03 07:53] VITALS: BP 141/92
[2017-03-03] MEDS: SENNA/DOCUSATE TABLET PO SCH (08:32)
[2017-03-03] MEDS: TAMSULOSIN 0.4 MG CAP.ER.24H PO SCH (08:32)
[2017-03-03] MEDS: CYANOCOBALAMIN 1,000 MCG TABLET PO SCH (08:32)
[2017-03-03] MEDS: MULTIVITAMIN 1 TABLET PO SCH (08:32)
[2017-03-03] MEDS: FINASTERIDE 5 MG TABLET PO SCH (08:32)
[2017-03-03 15:00] VITALS: BP 140/88
[2017-03-03 20:00] VITALS: BP 137/79
[2017-03-03] MEDS: CEFDINIR 300 MG CAPSULE PO SCH (20:07)
[2017-03-04 03:13] VITALS: BP 127/82
[2017-03-04] MEDS: HEPARIN 5,000 UNITS/ML, 1ML SQ SCH ×3 (05:28→21:03)
[2017-03-04 07:55] VITALS: BP 138/91
[2017-03-04] MEDS: HYDROcodone/APAP 5/325 TABLET PO PRN ×2 (08:12→19:58)
[2017-03-04] MEDS: DIPHENHYDRAMINE 25 MG CAPSULE PO PRN ×2 (08:12→20:07)
[2017-03-04] MEDS: MULTIVITAMIN 1 TABLET PO SCH (09:12)
[2017-03-04] MEDS: CEFDINIR 300 MG CAPSULE PO SCH ×2 (09:12→21:02)
[2017-03-04] MEDS: CYANOCOBALAMIN 1,000 MCG TABLET PO SCH (09:13)
[2017-03-04] MEDS: SENNA/DOCUSATE TABLET PO SCH (09:13)
[2017-03-04] MEDS: FINASTERIDE 5 MG TABLET PO SCH (09:13)
[2017-03-04] MEDS: TAMSULOSIN 0.4 MG CAP.ER.24H PO SCH (09:13)
[2017-03-04 13:05] VITALS: BP 132/80
[2017-03-04 18:58] VITALS: BP 121/78
[2017-03-05 01:50] VITALS: BP 149/97
[2017-03-05] MEDS: HEPARIN 5,000 UNITS/ML, 1ML SQ SCH ×3 (05:54→21:10)
[2017-03-05 06:53] VITALS: BP 133/85
[2017-03-05] MEDS: CEFDINIR 300 MG CAPSULE PO SCH ×2 (07:52→21:09)
[2017-03-05] MEDS: MULTIVITAMIN 1 TABLET PO SCH (07:52)
[2017-03-05] MEDS: TAMSULOSIN 0.4 MG CAP.ER.24H PO SCH (07:52)
[2017-03-05] MEDS: CYANOCOBALAMIN 1,000 MCG TABLET PO SCH (07:52)
[2017-03-05] MEDS: FINASTERIDE 5 MG TABLET PO SCH (07:52)
[2017-03-05] MEDS: SENNA/DOCUSATE TABLET PO SCH (07:52)
[2017-03-05 13:29] VITALS: BP 130/86
[2017-03-05] MEDS: HYDROcodone/APAP 5/325 TABLET PO PRN ×2 (14:53→21:09)
[2017-03-05] MEDS: DIPHENHYDRAMINE 25 MG CAPSULE PO PRN ×2 (14:53→21:09)
[2017-03-05 19:00] VITALS: BP 136/88
[2017-03-06 01:08] VITALS: BP 128/82
[2017-03-06] MEDS: DIPHENHYDRAMINE 25 MG CAPSULE PO PRN ×3 (05:26→19:43)
[2017-03-06] MEDS: HYDROcodone/APAP 5/325 TABLET PO PRN ×3 (05:26→19:43)
[2017-03-06] MEDS: HEPARIN 5,000 UNITS/ML, 1ML SQ SCH ×3 (05:26→22:00)
[2017-03-06 08:15] VITALS: BP 148/87
[2017-03-06] MEDS: SENNA/DOCUSATE TABLET PO SCH (09:00)
[2017-03-06] MEDS: MULTIVITAMIN 1 TABLET PO SCH (09:40)
[2017-03-06] MEDS: TAMSULOSIN 0.4 MG CAP.ER.24H PO SCH (09:40)
[2017-03-06] MEDS: CYANOCOBALAMIN 1,000 MCG TABLET PO SCH (09:40)
[2017-03-06] MEDS: FINASTERIDE 5 MG TABLET PO SCH (09:40)
[2017-03-06] MEDS: CEFDINIR 300 MG CAPSULE PO SCH ×2 (09:41→21:59)
[2017-03-06 12:52] VITALS: BP 136/93
[2017-03-06 13:02] VITALS: BP 143/98
[2017-03-06 19:01] VITALS: BP 129/84
[2017-03-07 01:10] VITALS: BP 121/78
[2017-03-07] MEDS: HEPARIN 5,000 UNITS/ML, 1ML SQ SCH ×3 (05:19→22:16)
[2017-03-07 08:30] VITALS: BP 145/86
[2017-03-07] MEDS: MULTIVITAMIN 1 TABLET PO SCH (09:51)
[2017-03-07] MEDS: TAMSULOSIN 0.4 MG CAP.ER.24H PO SCH (09:51)
[2017-03-07] MEDS: CYANOCOBALAMIN 1,000 MCG TABLET PO SCH (09:51)
[2017-03-07] MEDS: CEFDINIR 300 MG CAPSULE PO SCH ×2 (09:51→22:16)
[2017-03-07] MEDS: FINASTERIDE 5 MG TABLET PO SCH (09:51)
[2017-03-07] MEDS: SENNA/DOCUSATE TABLET PO SCH (09:52)
[2017-03-07] MEDS: DIPHENHYDRAMINE 25 MG CAPSULE PO PRN ×3 (10:06→23:16)
[2017-03-07] MEDS: HYDROcodone/APAP 5/325 TABLET PO PRN ×3 (10:06→23:16)
[2017-03-07] MEDS ORDERED: CEFD300C37 PO (12:34)
[2017-03-07 14:37] VITALS: BP 138/80
[2017-03-07 19:01] VITALS: BP 132/76
[2017-03-08 01:08] VITALS: BP 127/72
[2017-03-08 06:32] VITALS: BP 133/85
[2017-03-08] MEDS: HYDROcodone/APAP 5/325 TABLET PO PRN (06:48)
[2017-03-08] MEDS: DIPHENHYDRAMINE 25 MG CAPSULE PO PRN (06:48)
[2017-03-08] MEDS: TAMSULOSIN 0.4 MG CAP.ER.24H PO SCH (08:05)
[2017-03-08] MEDS: CYANOCOBALAMIN 1,000 MCG TABLET PO SCH (08:05)
[2017-03-08] MEDS: FINASTERIDE 5 MG TABLET PO SCH (08:05)
[2017-03-08] MEDS: MULTIVITAMIN 1 TABLET PO SCH (08:05)
[2017-03-08] MEDS: CEFDINIR 300 MG CAPSULE PO SCH (08:05)
[2017-03-08] MEDS: HEPARIN 5,000 UNITS/ML, 1ML SQ SCH (08:05)
[2017-03-08] MEDS: SENNA/DOCUSATE TABLET PO SCH (08:06)
== END 2017-03-08 09:30 | disposition home health service (06) | DRG 694 ==
LOC: ED 19:38 → EDIP 22:01 → 3NE 02-21 00:03
PROVIDERS: ADMIT Hospitalist; ATTEND Hospitalist
DX: N20.0 Calculus of kidney (principal); L89.159 Pressure ulcer of sacral region, unspecified stage; I31.3 Pericardial effusion (noninflammatory); N30.01 Acute cystitis with hematuria; B96.4 Proteus (mirabilis) (morganii) as the cause of diseases classified elsewhere; D75.89 Other specified diseases of blood and blood-forming organs; R62.7 Adult failure to thrive; E53.8 Deficiency of other specified B group vitamins; N40.1 Benign prostatic hyperplasia with lower urinary tract symptoms; Z66 Do not resuscitate; Z74.01 Bed confinement status; Z90.49 Acquired absence of other specified parts of digestive tract; I11.9 Hypertensive heart disease without heart failure
CPT/HCPCS: 36415; 74176; 80048; 80053; 81001; 82040; 82607; 82746; 83735; 85025; 85651; 87040; 87077; 87086; 87186; 99285; J0696; J1644; J2405; J2543; J7030; Q0163

== ENCOUNTER 2018-10-07 17:38 | Inpatient (IN) | payer MEDICARE ==
[~2018-10-07] VITALS: Ht 193 cm; Wt 91.9 kg
[~2018-10-07 17:38] MED LIST changes: +CEFD300C37 PO; +PRED5POW3 PO; +SENN-177 PO; +SENN-178 PO; -SENN1TAB9 PO
--- NOTE | 2018-10-07 17:44 | NUR ---
PT BIB [facility] FOR C/O OF HEADACHE, CHEST PAIN, SOB, AND ABDOMINAL PAIN. PT ASSESSED AND DRESSED IN GOWN. PT ATTACHED TO MONITOR, VSS, MD TO BEDSIDE FOR EXAM, NEW ORDERS RECEIVED AND IMPLEMENTED. PT AAO X 4. PT HAS 20 G PIV IN LEFT [facility] MEDICAL SPECIALIST BY EMS. PT STATES TENDERNESS IN ABDOMEN BUT NO SOB OR CHEST PAIN ON ARRIVAL. PT DOES STATE LEFT SIDED HEADACHE. SIDERAILS X [address], CALL LIGHT WITHIN REACH.
[2018-10-07] MEDS ORDERED: ACETAMINOPHEN 500 MG TABLET ONE (17:56)
--- NOTE | 2018-10-07 17:57 | NUR ---
LAB AT BEDSIDE.
--- NOTE | 2018-10-07 17:59 | NUR ---
PT TO CT.
[2018-10-07] MEDS ORDERED: ACETAMINOPHEN 500 MG TABLET PO ONE (18:00)
[2018-10-07] MEDS ORDERED: ASPIRIN 81 MG TABLET CHEW PO ONE (18:00)
--- NOTE | 2018-10-07 18:02 | NUR ---
PT RECEIVED 324MG ASA FROM [facility]P TICKETER. NOTIFIED, OK PER MD NOT TO GIVE ASA DOSE ORDERED HERE.
--- NOTE | 2018-10-07 18:09 | NUR ---
PT BACK FROM CT, ATTACHED TO MONITOR, CALL LIGHT WITHIN REACH, FALL PRECAUTIONS IN PLACE.
[2018-10-07 18:14] LABS: BASOPHILS # (AUTO) 0.02 x10^3/uL (0-0.1); BASOPHILS % (AUTO) 0 % (0-1); EOSINOPHILS # (AUTO) 0.12 x10^3/uL (0-0.4); EOSINOPHILS % (AUTO) 2 % (1-7); LYMPHOCYTES # (AUTO) 2.23 x10^3/uL (1-3.4); LYMPHOCYTES % (AUTO) 29 % (22-44); MD NO; MEAN CORPUSCULAR HEMOGLOBIN 34.1 pg (27.5-34.5); MEAN CORPUSCULAR HGB CONC 33.3 g/dL (33.2-36.2); MEAN CORPUSCULAR VOLUME 102.5 fL (81-97); MEAN PLATELET VOLUME 7.4 fL (7.4-10.4); MONOCYTES % (AUTO) 7 % (2-9); NEUTROPHILS # (AUTO) 4.82 x10^3/uL (1.8-6.8); NEUTROPHILS % (AUTO) 63 % (42-75); PLATELET COUNT 297 x10^3/uL (130-400); RED BLOOD COUNT 4.47 x10^6/uL (4.38-5.82); RED CELL DISTRIBUTION WIDTH 14.2 % (9.4-14.8)
[2018-10-07 18:22] LABS: ALBUMIN 3.4 g/dL (3.4-5.0); ANION GAP 12 mmol/L (5-15); CALCIUM 8.6 mg/dL (8.5-10.1); CHLORIDE 107 mmol/L (98-107); CREATININE 0.79 mg/dL (0.7-1.3)
[2018-10-07 18:26] LABS: TROPONIN I < 0.015 ng/mL (0.000-0.045)
--- NOTE | 2018-10-07 18:29 | NUR ---
PT INAPPROPRIATELY YELLING OUT TO STAFF. EDUCATION PROVIDED, CALL LIGHT USE ENFORCED, PT RE-ORIENTED. PLAN OF CARE EDUCATION PROVIDED AGAIN.
--- NOTE | 2018-10-07 18:46 | NUR ---
PT BACK FROM RAD, AWAITING RESULTS AND DISPO AT THIS TIME.
[2018-10-07] MEDS ORDERED: PINK LADY ENEMA 490 ML BOTTLE PR ONE (19:00)
--- NOTE | 2018-10-07 19:12 | NUR ---
HOSPITALIST AT BEDSIDE FOR ADMIT ASSESSMENT
[2018-10-07] MEDS ORDERED: NITROGLYCERIN 0.4 MG BOTTLE (25 TABS) SL PRN (19:30)
[2018-10-07] MEDS ORDERED: MORPHINE SULFATE 4 MG/ML, 1ML IVPush PRN (19:30)
[2018-10-07] MEDS ORDERED: ONDANSETRON ODT 4 MG PO PRN (19:30)
[2018-10-07] MEDS ORDERED: BISACODYL 10 MG SUPP PR PRN (19:30)
--- NOTE | 2018-10-07 19:40 | NUR ---
PT RESTING COMFORTABLY ON GURNEY, CALL LIGHT WITHIN REACH. PT EDUCATED ON POC AND ADMISSION TO HOSPITAL. FALL PRECAUTIONS IN PLACE.
--- NOTE | 2018-10-07 19:45 | NUR ---
PT'S SON CALLED, PROVIDED UPDATES. THIS RN ADDRESSED CONCERNS.
[2018-10-07] MEDS ORDERED: BRIM5DRO3 EACHEYE (19:49)
[2018-10-07] MEDS ORDERED: [UNRECOGNIZED DRUG - CODE] EACHEYE (19:49)
[2018-10-07] MEDS ORDERED: LATA2.5D3 EACHEYE (19:49)
--- NOTE | 2018-10-07 19:54 | NUR ---
REPORT GIVEN TO KOKO DESAI. PT TO TRANSFER TO ROOM 515 WITH ALL BELONGINGS AND CHART.
[2018-10-07] MEDS: SODIUM CHLORIDE FLUSH 10ML SYR IVF SCH (20:39)
[2018-10-07] MEDS: HEPARIN 5,000 UNITS/ML, 1ML SQ SCH (20:39)
[2018-10-07 20:58] VITALS: BP 159/90
[2018-10-07] MEDS: ACETAMINOPHEN 325 MG TABLET PO PRN (22:19)
[2018-10-08 01:26] LABS: TROPONIN I < 0.015 ng/mL (0.000-0.045)
[2018-10-08 02:15] VITALS: BP 151/87
[2018-10-08] MEDS: HEPARIN 5,000 UNITS/ML, 1ML SQ SCH ×3 (04:03→20:01)
[2018-10-08] MEDS: ASPIRIN 81 MG TABLET EC PO SCH (06:04)
[2018-10-08 06:36] LABS: BASOPHILS # (AUTO) 0.07 x10^3/uL (0-0.1); BASOPHILS % (AUTO) 1 % (0-1); EOSINOPHILS # (AUTO) 0.26 x10^3/uL (0-0.4); EOSINOPHILS % (AUTO) 4 % (1-7); LYMPHOCYTES # (AUTO) 2.43 x10^3/uL (1-3.4); LYMPHOCYTES % (AUTO) 36 % (22-44); MD NO; MEAN CORPUSCULAR HEMOGLOBIN 34.3 pg (27.5-34.5); MEAN CORPUSCULAR HGB CONC 32.9 g/dL (33.2-36.2); MEAN CORPUSCULAR VOLUME 104.1 fL (81-97); MEAN PLATELET VOLUME 7.3 fL (7.4-10.4); MONOCYTES # (AUTO) 0.47 x10^3/uL (0.2-0.8); MONOCYTES % (AUTO) 7 % (2-9); NEUTROPHILS # (AUTO) 3.61 x10^3/uL (1.8-6.8); NEUTROPHILS % (AUTO) 53 % (42-75); PLATELET COUNT 269 x10^3/uL (130-400); RED BLOOD COUNT 4.32 x10^6/uL (4.38-5.82); RED CELL DISTRIBUTION WIDTH 14.9 % (9.4-14.8)
[2018-10-08 06:45] LABS: ALBUMIN 3.4 g/dL (3.4-5.0); ANION GAP 7 mmol/L (5-15); CALCIUM 8.6 mg/dL (8.5-10.1); CHLORIDE 108 mmol/L (98-107)
[2018-10-08 06:53] LABS: ALANINE AMINOTRANSFERASE 54 U/L (12-78); ALKALINE PHOSPHATASE 79 U/L (45-117); BILIRUBIN,TOTAL 0.4 mg/dL (0.2-1.0); CHOL/HDL RATIO 2.9; CHOLESTEROL, TOTAL 181 mg/dL (140-239); HDL CHOL % 35 % (26-37); HDL CHOLESTEROL (DIRECT) 63 mg/dL (40-60); LDL CHOLESTEROL,CALCULATED 107 mg/dL (54-169); LDL/HDL RATIO 1.7 (0.5-3.0); TOTAL PROTEIN 6.7 g/dL (6.4-8.2); TRIGLYCERIDES 55 mg/dL (50-200); TROPONIN I < 0.015 ng/mL (0.000-0.045); VLDL CHOLESTEROL 11 mg/dL (0-25)
[2018-10-08 08:28] VITALS: BP 187/81
[2018-10-08] MEDS: TAMSULOSIN 0.4 MG CAP.ER.24H PO SCH (08:31)
[2018-10-08] MEDS: FINASTERIDE 5 MG TABLET PO SCH (08:31)
[2018-10-08] MEDS: CYANOCOBALAMIN 1,000 MCG TABLET PO SCH (08:34)
[2018-10-08] MEDS: SENNA/DOCUSATE TABLET PO SCH (08:35)
[2018-10-08] MEDS: POLYETHYLENE GLYCOL 17 GM PACKET PO SCH (08:35)
[2018-10-08] MEDS: SODIUM CHLORIDE FLUSH 10ML SYR IVF SCH ×2 (08:36→20:02)
[2018-10-08 10:42] VITALS: BP 134/82
[2018-10-08 14:31] VITALS: BP 123/75
[2018-10-08] MEDS: ACETAMINOPHEN 325 MG TABLET PO PRN ×2 (17:38→21:58)
[2018-10-08 22:08] VITALS: BP 157/88
[2018-10-09 02:56] VITALS: BP 156/94
[2018-10-09] MEDS: HEPARIN 5,000 UNITS/ML, 1ML SQ SCH ×2 (04:30→12:07)
[2018-10-09] MEDS: ASPIRIN 81 MG TABLET EC PO SCH (04:30)
[2018-10-09 06:00] VITALS: BP_SYST 149; BP_SYST 162; BP_DIAS 82; BP_DIAS 89
[2018-10-09 08:29] VITALS: BP 151/91
[2018-10-09] MEDS: FINASTERIDE 5 MG TABLET PO SCH (08:31)
[2018-10-09] MEDS: CYANOCOBALAMIN 1,000 MCG TABLET PO SCH (08:31)
[2018-10-09] MEDS: SENNA/DOCUSATE TABLET PO SCH (08:32)
[2018-10-09] MEDS: SODIUM CHLORIDE FLUSH 10ML SYR IVF SCH (08:32)
[2018-10-09] MEDS: POLYETHYLENE GLYCOL 17 GM PACKET PO SCH (08:32)
[2018-10-09] MEDS: TAMSULOSIN 0.4 MG CAP.ER.24H PO SCH (08:32)
[2018-10-09 14:30] VITALS: BP 122/84
[2018-10-09] MEDS: ACETAMINOPHEN 325 MG TABLET PO PRN (15:59)
== END 2018-10-09 18:24 | disposition home or self-care (01) | DRG 103 ==
LOC: ED 19:02 → EDIP 19:20 → 5SO 20:25
PROVIDERS: ADMIT Internal Medicine; ATTEND Internal Medicine
DX: R51 Headache (principal); K59.00 Constipation, unspecified; R07.89 Other chest pain; E53.8 Deficiency of other specified B group vitamins; R10.9 Unspecified abdominal pain; I10 Essential (primary) hypertension; L89.90 Pressure ulcer of unspecified site, unspecified stage; M21.372 Foot drop, left foot; N40.0 Benign prostatic hyperplasia without lower urinary tract symptoms; Z53.29 Procedure and treatment not carried out because of patient's decision for other reasons; Z66 Do not resuscitate; Z87.440 Personal history of urinary (tract) infections; Z87.442 Personal history of urinary calculi
CPT/HCPCS: 36415; 70450; 74022; 80048; 80053; 80061; 82040; 84484; 85025; 93005; 99285; G0378; J1644

== ENCOUNTER 2019-06-13 17:20 | Emergency (ER) | payer OTHER ==
[~2019-06-13] VITALS: Ht 182.9 cm; Wt 80.0 kg
[~2019-06-13 17:20] MED LIST changes: +BRIM5DRO3 EACHEYE; +CYAN-27 PO; -CYAN10005 PO; +FLUO20CA23 PO; +LATA2.5D3 EACHEYE; +LORA0.5T PO; +LOSA50TA14 PO; +MUPI22OI2 TP; +QUET25TA7 PO; +TRAZ50TA66 PO; +VANC1VIA3 PO; +[UNRECOGNIZED DRUG - CODE] EACHEYE
[2019-06-13 17:22] VITALS: BP 130/70
--- NOTE | 2019-06-13 17:30 | NUR ---
REPORT FROM MELINA DESAI. BP CUFF, PULSE OX IN PLACE. VSS. PT A/O X PERSON, PLACE, . PER REPORT, PT WITH HX OF DEMENTIA AND ORIENTED TO NORM. PT UNABLE TO PROVIDE ACCURATE HX AT THIS TIME. PT C/O BURNING AT PENIS, NO OTHER COMPLAINTS. HOLLOWAY IN PLACE DRAINING DARK LIZZ URINE WITH SEDIMENT. MARYANNE WARMER PLACED FOR PT C/O BEING COLD.
[2019-06-13 18:25] LABS: BASOPHILS # (AUTO) 0.03 x10^3/uL (0-0.1); BASOPHILS % (AUTO) 1 % (0-1); EOSINOPHILS # (AUTO) 0.25 x10^3/uL (0-0.4); EOSINOPHILS % (AUTO) 4 % (1-7); LYMPHOCYTES # (AUTO) 1.76 x10^3/uL (1-3.4); LYMPHOCYTES % (AUTO) 29 % (22-44); MD NO; MEAN CORPUSCULAR HEMOGLOBIN 33.5 pg (27.5-34.5); MEAN CORPUSCULAR HGB CONC 33.2 g/dL (33.2-36.2); MEAN CORPUSCULAR VOLUME 100.8 fL (81-97); MEAN PLATELET VOLUME 7.7 fL (7.4-10.4); MONOCYTES # (AUTO) 0.33 x10^3/uL (0.2-0.8); MONOCYTES % (AUTO) 5 % (2-9); NEUTROPHILS % (AUTO) 61 % (42-75); PLATELET COUNT 203 x10^3/uL (130-400); RED BLOOD COUNT 4.17 x10^6/uL (4.38-5.82); RED CELL DISTRIBUTION WIDTH 14.9 % (9.4-14.8)
[2019-06-13 18:40] LABS: ALANINE AMINOTRANSFERASE 26 U/L (12-78); ALBUMIN 3.3 g/dL (3.4-5.0); ANION GAP 8 mmol/L (5-15); CALCIUM 8.6 mg/dL (8.5-10.1); CHLORIDE 109 mmol/L (98-107); CREATININE 0.72 mg/dL (0.7-1.3)
[2019-06-13 18:41] LABS: ALKALINE PHOSPHATASE 71 U/L (45-117); BILIRUBIN,TOTAL 0.3 mg/dL (0.2-1.0); TOTAL PROTEIN 6.9 g/dL (6.4-8.2)
[2019-06-13 18:50] LABS: CULTURE INDICATED? YES; MICROSCOPIC INDICATED
--- NOTE | 2019-06-13 18:54 | NUR ---
CALL FROM JADA, CAREGIVER OF PT FOR THREE YEARS. JADA LIVES WITH PT AND WAS OFF WORK LAST WEEKEND. PER JADA, PENILE DISCHARGE NOTICED BY HER ON MONDAY AND PT WITH FREQUENT C/O BURNING AT PENIS. JADA NOTIFIED PMD. CATHETER CHANGED ON MONDAY. JADA ALSO R/O HEARING DEEP COUGH OVER COUPLE DAYS. JADA LANE [phone]
--- NOTE | 2019-06-13 19:03 | NUR ---
REPORT TO EMMA DESAI, TRANSFER OF CARE AT THIS TIME.
[2019-06-13] MEDS ORDERED: CEFTRIAXONE PMX 1GM/50ML 50 ML IV ONE (19:30)
[2019-06-13] MEDS ORDERED: CEFTRIAXONE PMX 1GM/50ML 0 ML ONE (19:48)
--- NOTE | 2019-06-13 20:21 | NUR ---
PT REFUSED IV FOR ABX ADMIN, OUMAR SAUNDERS INFORMED.
--- NOTE | 2019-06-13 20:22 | NUR ---
CALLED CARE PROVIDER JADA. TO SEND PT HOME VIA AMBULANCE. JADA AT PTS HOME TO MEET HIM. JADA NOTIFIED OF PO ABX FOR UTI.
== END 2019-06-13 21:22 | disposition home or self-care (01) ==
LOC: ED 21:15
DX: N30.00 Acute cystitis without hematuria (principal); R05 Cough; I10 Essential (primary) hypertension; Z90.89 Acquired absence of other organs
CPT/HCPCS: 36415; 71045; 80053; 81001; 83605; 84145; 85025; 87040; 87077; 87086; 87186; 99284

== ENCOUNTER 2019-10-31 11:07 | Emergency (ER) | payer OTHER ==
[~2019-10-31 11:07] MED LIST changes: +METR500T PO
--- NOTE | 2019-10-31 11:16 | NUR ---
BIB [facility] FROM HOME. [facility] HOME HEALTH NURSE CALLED FOR ABD PAIN AND DISTENTION. PT ON HOSPICE, ERNESTO DIDN'T KNOW WHICH COMPANY OR WHY ON HOSPICE. PT BM PRIOR TO [facility] ARRIVAL, PT WEARS CONDOM CATH AT HOME DRAINING ADEQUATLEY. PT REFUSED PIV FROM [facility]. PT DID NOT ARRIVE WITH ANY PAPERWORK FROM HOSPICE NURSE. UNKNOWN MEDS. PER [facility]: PT GIVEN MORPHINE AND HALDOL AT 0500 THIS AM. PT UNCOOPERATIVE WITH PROVIDER, NOT ANSWERING QUESTIONS. PT CONNECTED TO ALL MONITORING. FALL PRECAUTIONS IN PLACE. CALL LIGHT IN REACH.
--- NOTE | 2019-10-31 11:35 | NUR ---
SPOKE WITH CM AT [facility]. PAPERBOARD BOXES ESTIMATOR DID NOT CALL 911, SON OR FORMING DEPARTMENT SUPERVISOR CALLED. HOSPICE WAS A PT HOUSE A COUPLE DAYS AGO. LEFT MESSAGE FOR SON JÚNIOR FOR UPDATE.
[2019-10-31] MEDS ORDERED: HALOPERIDOL 1 MG TABLET PO SCH (12:00)
--- NOTE | 2019-10-31 12:11 | NUR ---
PT REFUSED HALDOL. PT JUST STATING WANTS TO GO HOME.
--- NOTE | 2019-10-31 12:24 | NUR ---
PT STATED HE'LL DO A TEST FOR HIS STOMACH. BUT STILL REFUSED HALDOL. PT NOT AGGRESSIVE, JUST WANTS TO GO HOME.
--- NOTE | 2019-10-31 13:01 | NUR ---
ALL RESULTS ARE BACK AT THIS TIME. CHART UP FOR RECHECK.
[2019-10-31] MEDS ORDERED: LIDOCAINE 2%,20 ML JEL.PF.APP MM ONE ×2 (13:10→13:30)
--- NOTE | 2019-10-31 13:38 | NUR ---
INDWELLING CATHATER INSERTED WITH STERILE TECHNIQUE. DRAING YELLOW URINE. UROJET LIDO ADMI PRIOR TO INSERTION. PT TOLERATED WELL.
[2019-10-31 13:49] LABS: MICROSCOPIC INDICATED
[2019-10-31] MEDS ORDERED: CEFDINIR 300 MG CAPSULE PO ONE (14:00)
--- NOTE | 2019-10-31 14:07 | NUR ---
UPDATED JADA, HOME CAREGIVER ON PT POC.
[2019-10-31] MEDS ORDERED: CEFDINIR 300 MG CAPSULE ONE (14:09)
[2019-10-31 14:18] VITALS: BP 163/98
--- NOTE | 2019-10-31 14:19 | NUR ---
MEDS ADMIN PER JUN. PT TO BE DC HOME BY [facility] AT 1515.
--- NOTE | 2019-10-31 14:51 | NUR ---
ERNEST[facility] AT BEDSIDE TO COLLECTED PT TO TAKE HOME. [facility] DEPARTED ER WITH PT.
== END 2019-10-31 14:53 | disposition home or self-care (01) ==
LOC: ED 12:28
DX: N30.00 Acute cystitis without hematuria (principal); R33.8 Other retention of urine; I10 Essential (primary) hypertension; Z90.89 Acquired absence of other organs
CPT/HCPCS: 51702; 74176; 81001; 87077; 87086; 87186; 93005; 99285